=== PATIENT | male | born 1945 | race Caucasian/White ===

== ENCOUNTER 2016-09-16 17:21 | Inpatient (IN) | payer MEDICARE, OTHER ==
[2016-09-16 18:55] LABS: ABSOLUTE NEUTROPHIL COUNT 8.9 K/mm3 (1.8-7.7); BASO # 0.1 K/mm3 (0.0-0.2); BASO % 0.9 % (0.2-1.0); EOS # 0.3 (0.0-0.5); EOS % 2.2 % (0.9-2.9); HEMOGLOBIN 13.5 gm/l (14.0-18.0); IMM NEUT% 0.2 % (0-1); LYMPH # 2.3 (1.0-4.8); LYMPH % 17.8 % (15-45); MEAN CELL VOLUME 85.1 fl (80.0-94.0); MEAN CORPUSCULAR HEMOGLOBIN 28.7 pg (27.0-31.0); MEAN CORPUSCULAR HGB CONC 33.8 g/dl (33.0-37.0); MEAN PLATELET VOLUME 10.5 fl (7.4-10.4); MONO # 1.3 (0.0-0.8); MONO % 10.1 % (4-12); NEUT % 68.8 % (43-75); PLATELET COUNT 348 K/mm3 (130-400); RED CELL DISTRIBUTION WIDTH 12.6 % (11.5-14.5)
[2016-09-16] MEDS ORDERED: LACTATED RINGERS 1,000 ML ONE ×2 (18:57→20:58)
[2016-09-16 19:02] LABS: CALCIUM 10.4 mg/dL (8.6-10.3)
[2016-09-16 19:04] LABS: C-REACTIVE PROTEIN 5.3 mg/dl (<1.0)
--- NOTE | 2016-09-16 20:19 | RAD ---
FOOT - LEFT 2 VIEW HISTORY: Wounds involving the fifth metatarsal and second toe. COMPARISONS: None. FINDINGS: 2 views of the left foot were performed demonstrating diffuse bony osteopenia. The visualized osseous structures appear to remain intact. There is no soft tissue gas or gross cortical destruction visualized. Atherosclerotic vascular calcification is seen. There is accentuation of the plantar arch. IMPRESSION: 1. No gross cortical destruction or soft tissue gas observed. 2. Atherosclerotic vascular calcification. 3. Accentuation of the plantar arch.
--- NOTE | 2016-09-16 20:20 | RAD ---
FOOT - RIGHT 2 VIEW HISTORY: Second toe wound. COMPARISONS: None. FINDINGS: 2 views of the right foot were performed demonstrating diffuse bony osteopenia. The visualized osseous structures appear to remain intact with no gross cortical destruction or soft tissue gas is observed. There are hyperflexion deformities of the metatarsophalangeal joints with medial subluxation of the midfoot in relationship to the hindfoot. Atherosclerotic vascular calcification is present. IMPRESSION: 1. Bony osteopenia. 2. No gross cortical destruction or soft tissue gas identified. 3. Atherosclerotic vascular calcification.
[2016-09-16] MEDS ORDERED: VANCOMYCIN HCL 1.5 G in SODIUM CHLORIDE 0.9% 500 ML IV ONE (21:45)
[2016-09-16] MEDS ORDERED: PNEUMOCOCCAL 23-VAL P-SAC VAC 0.5 ML VIAL SUB-Q V ONE (22:57)
[2016-09-16 23:03] VITALS: BMI 26.5
[2016-09-16] MEDS ORDERED: SODIUM CHLORIDE 0.9% 100 ML IV PRN (23:12)
[2016-09-16] MEDS ORDERED: BISACODYL 10 MG SUP PR PRN (23:12)
[2016-09-16] MEDS ORDERED: CALCIUM CARBONATE 500 MG TAB.CHEW PO PRN (23:12)
[2016-09-16] MEDS ORDERED: BISACODYL 5 MG TABLET.EC PO PRN (23:12)
[2016-09-16] MEDS ORDERED: MAGNESIUM HYDROXIDE 30 ML UDCUP PO PRN (23:12)
[2016-09-16] MEDS ORDERED: BLISTEX LIPSTICK 1 EACH TP PRN (23:12)
[2016-09-16] MEDS ORDERED: MENTHOL/CETYLPYRD 1 EACH LOZENGE PO PRN (23:12)
[2016-09-16] MEDS ORDERED: SODIUM CHLORIDE 0.9% 1,000 ML IV SCH (23:15)
[2016-09-16] MEDS ORDERED: INSULIN ASPART (DOSE) 100 UNITS/1 ML SUB-Q PRN (23:16)
[2016-09-16] MEDS ORDERED: IBUPROFEN 600 MG TABLET PO PRN (23:22)
[2016-09-16] MEDS ORDERED: PROPRANOLOL HCL 40 MG TABLET PO PRN (23:22)
[2016-09-16] MEDS ORDERED: ACETAMINOPHEN 325 MG TABLET PO PRN (23:22)
[2016-09-16] MEDS ORDERED: DIPHENHYDRAMINE HCL 25 MG CAPSULE PO PRN (23:34)
[2016-09-16] MEDS: DIPHENHYDRAMINE HCL 25 MG CAPSULE PO PRN (23:47)
[2016-09-16] MEDS: ENOXAPARIN SODIUM 40 MG/0.4 ML SYRINGE SUB-Q SCH (23:47)
[2016-09-16] MEDS: ACETAMINOPHEN 500 MG TABLET PO PRN (23:48)
[2016-09-17] MEDS ORDERED: SODIUM CHLORIDE 0.9% IV SCH ×2 (01:00→10:30)
[2016-09-17] MEDS ORDERED: CEFAZOLIN SODIUM IV SCH ×4 (01:00→10:30)
[2016-09-17] MEDS ORDERED: CEFAZOLIN SODIUM 1,000 MG VIAL ONE (02:21)
[2016-09-17] MEDS ORDERED: SODIUM CHLORIDE 0.9% 50 ML IV ONE (02:21)
--- NOTE | 2016-09-17 06:49 | HP ---
Sylvain Godoy Aldo [id number] DATE OF ADMISSION: 09/16/2016 CHIEF COMPLAINT: Left knee redness and swelling and second left toe redness. HISTORY OF PRESENT ILLNESS: The patient is a 70-year-old male with a history of Charcot Roro tooth and poorly controlled diabetes who has had recurrent bursitis with previous admissions approximately a year ago who has had chronic difficulty with ambulation due to his weakness and diabetes. He reports his feet and toes are looking infected over the last two weeks. He has had some chills, but no fever. He notes that his knees and toes can hurt some if he is on them, but he is more concerned about how looked inflamed with a scab noted on them. He is considering getting diabetic shoes. Last saw Dr. Dalal in June. 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 He has a history of gastroesophageal reflux disease, history of Charcot Roro tooth, previous bursitis with enterococcus faecalis that was generally sensitive to most drugs tested last year. He has had essential tremor and takes propranolol for this as well and has a history of hypertension. PAST SURGICAL HISTORY: He has a history of a nephrolithotomy, but otherwise no surgeries. ALLERGIES: PENICILLIN HAS GIVEN HIM INCREASED HEART RATE ACCORDING TO HIS OLD PATIENT CHART AND LOSARTAN HAD BEEN ASSOCIATED WITH SOME SUICIDAL THOUGHTS. CURRENT MEDICATIONS: His home medications taken from his list in the computer and reviewed with him: 1. Acetaminophen 650 mg by mouth every 6 hours as needed. 2. Tylenol PM 1 by mouth at bedtime as needed. 3. Atenolol 50 mg daily. 4. Colecalciferol 50,000 units weekly. 5. Gabapentin 600 mg at bedtime. 6. Glipizide ER 5 mg daily. 7. Ibuprofen 600 mg by mouth at bedtime as needed. 8. Lantus 15 units subcutaneously at bedtime, this is reduced from the note the chart, he indicates that when he takes a higher dose it seems to make him urinate more. 9. Metformin 500 mg daily. 10. Ditropan 5 mg by mouth daily. 11. Propranolol 40 mg by mouth daily as needed for tremor. 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 He is disabled from Charcot Roro tooth. He was never . Has no kids. Nonsmoker. He does chew tobacco. Reports 1-1/2 bottles of beer a week. No particular [employer] affiliation. Hobbies include working on the property although, this would be at odds with his level of disability. He lives in a trailer in [place]. He reports he has been considering moving to [place] or to [place] possibly to live with somebody. FAMILY HISTORY: Father at 56 of a motor vehicle accident. Mom in 92. He has a paternal aunt who lives to 102. He has no children. REVIEW OF SYSTEMS: Eyes are okay. Ears are okay, but some wax. Nose is okay. Mouth is okay. Missing some teeth due to his high blood pressure medicine which makes his mouth dry. Neck is okay. Breathing is okay. He notes he get a little short of breath once in a while if he is laying on his left side. Heart: No particular complaints. Stomach is okay. No vomiting. Occasional loose stools and he did have a history of C-diff the previous hospitalization. No urinary complaints except for he was noting some red urine a couple of weeks ago attributed to a kidney stone. Urination has been okay otherwise. No stroke complaints. He would accept limited resuscitation in the event of a cardiac event. PHYSICAL EXAMINATION: GENERAL: Nontoxic, debilitated appearing male. VITAL SIGNS: Temperature 99.1, blood pressure 139/91, respirations 20, pulse 104, saturation 97% on room air. HEENT: Head is normocephalic, atraumatic. Eyes are grossly unremarkable. Ears are normal. Nose is unremarkable. Mouth: Dentition is only fair. NECK: Supple. No masses. No jugular venous distention. LUNGS: Generally clear to auscultation bilaterally. HEART: Regular rate and rhythm without murmur. ABDOMEN: Soft. Bowel sounds are normal. No rebound, no guarding. Nontender, nondistended. GENITOURINARY: Grossly normal male. EXTREMITIES: Legs with atrophy evident. Left knee with fullness of a prepatellar bursitis with some redness noted. It is warm, but not hot. A few small cracks in the skin noted, but no purulent discharge is evident. Left second toe has got a blister like collection over the proximal interphalangeal joint. His lateral left foot has got a unstageable eschar about 2 cm in long axis noted as well. His feet demonstrate changes from his neuropathy and his hands demonstrate atrophy. He has got an essential tremor evident. NEUROLOGIC: His orientation is good. Insight seems to be somewhat decreased. LABORATORY: White count 12.9, hemoglobin 13.5, platelets 348, MCV of 85.1, lactate 2.2, sodium 133, potassium 4.4, chloride 97, CO2 26, BUN 23, creatinine 1.1, glucose 420, calcium 10.4, CRP 5.3, sed rate 52. DIAGNOSTICS: Foot x-ray bone osteopenia, atherosclerotic vascular calcifications, but no gross destruction and no gas. ASSESSMENT AND PLAN: 1. Diabetic left second toe ulcer cellulitis. Plan Ancef and vancomycin due to previous enterococcus. 2. Left knee bursitis. Plan antibiotics as above. Blood cultures are obtained and will also check with orthopedics regarding these two lesions. 3. Sepsis due to cellulitis. Plan to continue IV fluids started in the emergency department. We will recheck lactate. 4. Uncontrolled diabetes mellitus. Plan Lantus sliding scale insulin and capillary blood glucoses along with intravenous fluids and check an A1c. 5. Charcot Roro tooth. Appreciate physical therapy and occupational therapy input although, he has been resistant to making any modifications to his living situation. 6. Social difficulties. Patient is resistant to previous placement attempts. 7. Hypertension. Will continue on atenolol. 8. Tremor. Patient is dual beta lianne therapy with atenolol and propranolol. will continue on both of these at this time. 9. Ambulatory difficulties and weakness. Appreciate physical therapy and occupational therapy. He reports considering getting diabetic shoes, so he may consider follow up with Dr. Dalal as an outpatient. 10. Full code status. 11. Venous thrombosis prophylaxis with Lovenox. 12. Reported hematuria. Will check urinalysis and consider whether CT scanning is desired while he is here. JOB: [id number] CC: Dr. Jennifer Smith
[2016-09-17 06:59] LABS: ABSOLUTE NEUTROPHIL COUNT 4.7 K/mm3 (1.8-7.7); BASO # 0.1 K/mm3 (0.0-0.2); EOS # 0.6 (0.0-0.5); HEMATOCRIT 30.9 % (32.0-52.0); HEMOGLOBIN 10.3 gm/l (14.0-18.0); IMM NEUT% 0.2 % (0-1); LYMPH # 3.3 (1.0-4.8); LYMPH % 33.1 % (15-45); MEAN CELL VOLUME 85.4 fl (80.0-94.0); MEAN CORPUSCULAR HEMOGLOBIN 28.5 pg (27.0-31.0); MEAN CORPUSCULAR HGB CONC 33.3 g/dl (33.0-37.0); MEAN PLATELET VOLUME 10.7 fl (7.4-10.4); MONO # 1.3 (0.0-0.8); MONO % 12.7 % (4-12); PLATELET COUNT 285 K/mm3 (130-400); RED CELL DISTRIBUTION WIDTH 12.6 % (11.5-14.5)
[2016-09-17 07:36] LABS: URINE APPEARANCE HAZY; URINE BILIRUBIN NEGATIVE (NEGATIVE); URINE BLOOD 4+ (NEGATIVE); URINE COLOR YELLOW; URINE GLUCOSE (UA) 3+ (NEGATIVE); URINE LEUKOCYTE ESTERASE 1+ (NEGATIVE); URINE NITRITE POSITIVE (NEGATIVE); URINE PROTEIN 1+ (NEGATIVE); URINE UROBILINOGEN NORMAL (0-1 mg/dl)
[2016-09-17 07:47] LABS: URINE BACTERIA 2+; URINE EPITHELIAL CELLS 0-1 /hpf; URINE WBC 30-40 /hpf
[2016-09-17 07:49] LABS: ALBUMIN 2.9 gm/dL (3.5-5.7); CALCIUM 8.1 mg/dL (8.6-10.3)
[2016-09-17] MEDS ORDERED: GLIPIZIDE 5 MG PO SCH (09:00)
--- NOTE | 2016-09-17 09:50 | CT ---
Exam Type: ABD/PELVIS W/O CON Date and Time: 09/17/2016 5:00 AM Clinical information: Hematuria. Comparison: None Procedure: Imaging device: [employer] Aquilion [address] scanner 1 mm axial images were obtained through the abdomen and pelvis. Stacked reconstructed 3, 4 and 5 mm images were photographed in the axial coronal and sagittal planes. No oral contrast was utilized for this examination. Exam: Without intravenous contrast. FINDINGS: Lung bases:The visualized lung bases appear to be appropriate with no mass, effusion or consolidation visualized. Liver: the liver is homogeneous with no discrete abnormality visualized. No definite findings of biliary dilatation are observed. Spleen: The spleen is homogeneous and does not appear to be enlarged. Gallbladder: Normal without enlargement or evidence of adjacent inflammatory changes. Pancreas: Normal without enlargement or evidence of adjacent inflammatory changes. Adrenal glands: Normal without enlargement or evidence of adjacent inflammatory changes. Abdominal aorta: Mild atherosclerotic vascular calcification is seen. No focal aneurysm is visualized. Kidneys: The kidneys appear to be of symmetric size with no significant perinephric inflammatory stranding observed. There is a large left sided calculus identified within the left renal collecting system measuring 12.7 x 9.5 mm in size. No significant associated obstruction is seen with the calyceal system not appearing distended. A subtle low-attenuation focus is suggested within the superior portion of the right kidney, likely reflecting a renal cyst. Bowel structures: Distal colonic diverticulosis is present without inflammatory stranding to suggest diverticulitis. No findings of obstruction are present. Appendix: The appendix is well-visualized and appears to be of normal caliber. No periappendiceal inflammatory changes or CT findings of appendicitis are currently observed. Bladder: The bladder is partially decompressed. There is mild suggested thickening of the bladder wall noted. Hernia: A small fat filled umbilical hernia is present. Adenopathy: A few scattered retroperitoneal lymph nodes are seen adjacent to the aorta measuring up to 11 mm in size. Bilateral inguinal lymph nodes are present as well measuring up to 2.5 cm within the left inguinal region and 3.1 cm within the right inguinal region. Osseous structures: Multilevel thoracic and lumbar degenerative changes are present. Pelvic structures: No discrete pelvic abnormalities are visualized in this examination. IMPRESSION: 1. A 12.7 x 9.5 mm calculus within the left renal collecting system without associated obstruction currently. 2. A probable right renal cyst. 3. Distal colonic diverticulosis without evidence to suggest diverticulitis. 4. Bilateral inguinal and mild retroperitoneal adenopathy. 5. Multilevel thoracic and lumbar degenerative changes. 6. Mild thickening of the bladder wall which may reflect an underlying component of cystitis. 7. A small fat filled umbilical hernia.
[2016-09-17] MEDS: VANCOMYCIN HCL 1.25 G in SODIUM CHLORIDE 0.9% 250 ML IV SCH ×2 (09:53→21:10)
[2016-09-17] MEDS: DOCUSATE SODIUM 100 MG CAPSULE PO SCH ×2 (09:54→21:10)
[2016-09-17] MEDS: INSULIN GLARGINE (DOSE) 100 UNITS/ML UNIT SUB-Q SCH ×2 (09:54→21:34)
[2016-09-17] MEDS: ATENOLOL 50 MG TABLET PO SCH (09:55)
[2016-09-17] MEDS: OXYBUTYNIN CHLORIDE 5 MG TAB.XL PO SCH (09:55)
[2016-09-17] MEDS ORDERED: BOT IV SCH (10:30)
[2016-09-17] MEDS ORDERED: NS 0.9% IV SCH (10:30)
[2016-09-17] MEDS ORDERED: GLIPIZIDE 5 MG PO ONE (11:08)
--- NOTE | 2016-09-17 11:09 | PDOC43 ---
- Subjective Chief Complaint: ulcers on both 2nd toes with redness of left 2nd toe. Subjective: Reports Pain Tolerable, Reports Tolerating Diet Well, Denies Fever - Objective Vital Signs Temperature 98.1 F 09/17/16 07:49 Pulse Rate 93 09/17/16 07:49 Respiratory Rate 16 09/17/16 07:49 Blood Pressure 140/80 09/17/16 07:49 O2 Saturation by Pulse Oximetry 97 09/17/16 07:49 Oxygen Delivery Method Room Air Oxygen Flow Rate 0 Intake and Output 09/16/16 09/17/16 09/18/16 06:59 06:59 06:59 Intake Total 800 Output Total 425 Balance 375 General: Alert, Oriented x3, Cooperative, No Acute Distress HEENT: Mucous membr. moist/pink Lungs: Clear to Auscultation Bilaterally Cardiovascular: Regular Rate and Rhythm Abdomen: Soft, Normal Bowel Sounds, Non-Distended, No Tenderness Extremities: Other (Charcot arthropathy of both feet, ulcerations on top of right 2nd PIP joint without redness, left 2nd toe with erythema and callus with underlying abscess over PIP joint each measuring about 1cm. Dry flat eschar on lateral aspect of left foot without erythema or ulceration measures 1cm. Prepatellar bursitis of left knee without evidence of infection), No Edema Laboratory 09/17/16 05:48 09/17/16 05:48 09/17/16 09/17/16 07:40 05:48 RBC 3.62 L POC Capillary Glucose 263 H Calcium 8.1 L AST 8 L Total Protein 5.9 L Albumin 2.9 L Current Medications: Current meds reviewed in EMR. - Problems: Assessment/Plan (1) Cellulitis and abscess of foot Status: Acute Assessment/Plan: involves left 2nd toe with ulcerating callus on ancef and Vancomycin, Cx obtained today and pending (2) UTI (urinary tract infection) Qualifiers: Urinary tract infection type: acute cystitis Hematuria presence: with hematuria Qualifier Code: (N30.01) Acute cystitis with hematuria Status : Acute Assessment/Plan: present on admit and suspected source of severe sepsis and lactic acidosis on admit. 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 Qualifier Code: (E11.42) Type 2 diabetes mellitus with diabetic polyneuropathy Status: Chronic Assessment/Plan: uncontrolled-increased Glucotrol and Lantus-will use high dose correction scale (4) Nqfthum-Trfje-Olzqg disease Status: Chronic Assessment/Plan: advanced, contributes to increased risk of infection (5) Hypertension Qualifiers: Hypertension type: essential hypertension Qualifier Code: (I10) Essential (primary) hypertension Status: Chronic Assessment/Plan: stable on meds (6) Bursitis, knee Qualifiers: Laterality: left Qualifier Code: (M70.52) Other bursitis of knee, left knee Status: Chronic Assessment/Plan: chronic due to overuse and pressure on knee from crawling in house, no evidence of infection (7) Hypokalemia Status: Resolved Assessment/Plan: will replace VTE Prophylaxis: ipcs Disposition: to be determined
[2016-09-17] MEDS: INSULIN ASPART (DOSE) 100 UNITS/1 ML SUB-Q PRN ×3 (11:38→21:33)
[2016-09-17] MEDS: CEFTRIAXONE 1 GRAM DUPLEX 1 G in Premix (D5W) 50 ml 1 EACH IV SCH (11:38)
[2016-09-17] MEDS ORDERED: SODIUM CHLORIDE NS ADD VANTAGE IV SCH (12:00)
[2016-09-17] MEDS ORDERED: VANCOMYCIN HCL IV SCH (12:00)
[2016-09-17 14:21] LABS: A1C-GLYCOHEMOGLOBIN 1.1 g/dl; HEMOGLOBIN-GLYCO 12.7 g/dl
[2016-09-17] MEDS: ENOXAPARIN SODIUM 40 MG/0.4 ML SYRINGE SUB-Q SCH (21:09)
[2016-09-17] MEDS: GABAPENTIN 300 MG CAPSULE PO SCH (21:09)
[2016-09-17] MEDS: DIPHENHYDRAMINE HCL 25 MG CAPSULE PO PRN (22:23)
[2016-09-17] MEDS: ACETAMINOPHEN 500 MG TABLET PO PRN (22:23)
[2016-09-18] MEDS: ATENOLOL 50 MG TABLET PO SCH (08:44)
[2016-09-18] MEDS: OXYBUTYNIN CHLORIDE 5 MG TAB.XL PO SCH (08:44)
[2016-09-18] MEDS: GLIPIZIDE 10 MG PO SCH (08:44)
[2016-09-18] MEDS: DOCUSATE SODIUM 100 MG CAPSULE PO SCH ×2 (08:44→21:13)
--- NOTE | 2016-09-18 08:58 | PDOC43 ---
- Subjective Chief Complaint: ulcers on both 2nd toes with redness of left 2nd toe. Subjective: Reports Pain Tolerable, Reports Tolerating Diet Well, Denies Fever - Objective Vital Signs Temperature 98.7 F 09/18/16 01:10 Pulse Rate 78 09/18/16 01:10 Respiratory Rate 18 09/18/16 04:24 Blood Pressure 132/68 09/18/16 01:10 O2 Saturation by Pulse Oximetry 98 09/18/16 01:10 Oxygen Delivery Method Room Air Oxygen Flow Rate 0 Intake and Output 09/17/16 09/18/16 09/19/16 06:59 06:59 06:59 Intake Total 800 2170 Output Total 425 1625 Balance 375 545 General: Alert, Oriented x3, Cooperative, No Acute Distress HEENT: Mucous membr. moist/pink Lungs: Clear to Auscultation Bilaterally Cardiovascular: Regular Rate and Rhythm Abdomen: Soft, Normal Bowel Sounds, Non-Distended, No Tenderness Extremities: Other (Charcot arthropathy of both feet with 1cm dry eschar on lat. aspect of left foot(approx 1cm.) ulcerated callus approx. 1cm on top of both 2nd PIP joints with cellulitic area around the PIP but not extending to foot. Bursal swelling in left prepatellar bursa with mild erythema but nontender , and not hot), No Edema Laboratory 09/17/16 05:48 09/17/16 05:48 09/17/16 09/17/16 09/17/16 21:08 17:17 11:10 POC Capillary Glucose 245 H 210 H 174 H Calcium AST Total Protein Albumin 09/17/16 09/17/16 07:40 05:48 POC Capillary Glucose 263 H Calcium 8.1 L AST 8 L Total Protein 5.9 L Albumin 2.9 L Current Medications: Current meds reviewed in EMR. - Problems: Assessment/Plan (1) Cellulitis and abscess of foot Status: Acute Assessment/Plan: involves left 2nd toe with ulcerating callus on ancef and Vancomycin, Cx still pending (2) UTI (urinary tract infection) Qualifiers: Urinary tract infection type: acute cystitis Hematuria presence: with hematuria Qualifier Code: (N30.01) Acute cystitis with hematuria Status : Acute Assessment/Plan: present on admit and suspected source of severe sepsis and lactic acidosis on admit. Complicated by large nonobstructing left kidney stone-await Cx results, switched to Rocephin plus vancomycin (3) Diabetes mellitus type II, uncontrolled Qualifiers: Diabetes mellitus complication status: with neurologic complications Diabetes mellitus complication detail: with polyneuropathy Diabetes mellitus detention insulin use: with detention use Qualifier Code: (E11.42) Type 2 diabetes mellitus with diabetic polyneuropathy Status: Chronic Assessment/Plan: uncontrolled, HGBA1C was 10.4-increased Glucotrol and Lantus, using high dose correction scale-down to 76 this am, will change Lantus to 30 units at bedtime instead of 20units twice daily (4) Tgvjtvk-Ojijn-Intyn disease Status: Chronic Assessment/Plan: advanced, contributes to increased risk of infection (5) Hypertension Qualifiers: Hypertension type: essential hypertension Qualifier Code: (I10) Essential (primary) hypertension Status: Chronic Assessment/Plan: stable on meds (6) Bursitis, knee Qualifiers: Laterality: left Qualifier Code: (M70.52) Other bursitis of knee, left knee Status: Chronic Assessment/Plan: chronic due to overuse and pressure on knee from crawling in house, no evidence of infection (7) Hypokalemia Status: Resolved Assessment/Plan: will replace-recheck in am VTE Prophylaxis: ipcs Disposition: Anticipate SNF placement in am
[2016-09-18] MEDS: VANCOMYCIN HCL 1.25 G in SODIUM CHLORIDE 0.9% 250 ML IV SCH (09:32)
[2016-09-18] MEDS ORDERED: VANCOMYCIN HCL 500 MG in NS 0.9% (MINI-BAG PLUS) 100 ML IV ONE (11:45)
[2016-09-18] MEDS: INSULIN ASPART (DOSE) 100 UNITS/1 ML SUB-Q PRN ×3 (12:04→21:21)
[2016-09-18] MEDS: CEFTRIAXONE 1 GRAM DUPLEX 1 G in Premix (D5W) 50 ml 1 EACH IV SCH (12:59)
[2016-09-18] MEDS ORDERED: PUMP TUBING ONE (14:34)
[2016-09-18] MEDS: ACETAMINOPHEN 325 MG TABLET PO PRN ×2 (16:03→21:21)
[2016-09-18] MEDS ORDERED: INSULIN GLARGINE (DOSE) 100 UNITS/ML UNIT SUB-Q SCH (21:00)
[2016-09-18] MEDS: ENOXAPARIN SODIUM 40 MG/0.4 ML SYRINGE SUB-Q SCH (21:09)
[2016-09-18] MEDS: GABAPENTIN 300 MG CAPSULE PO SCH (21:09)
[2016-09-18] MEDS: VANCOMYCIN HCL 1.5 G in SODIUM CHLORIDE 0.9% 500 ML IV SCH (21:30)
[2016-09-18] MEDS: DIPHENHYDRAMINE HCL 25 MG CAPSULE PO PRN (23:46)
[2016-09-19 06:26] LABS: ABSOLUTE NEUTROPHIL COUNT 4.5 K/mm3 (1.8-7.7); BASO # 0.1 K/mm3 (0.0-0.2); BASO % 0.8 % (0.2-1.0); EOS # 0.8 (0.0-0.5); EOS % 8.5 % (0.9-2.9); HEMATOCRIT 34.4 % (32.0-52.0); HEMOGLOBIN 11.4 gm/l (14.0-18.0); IMM NEUT # 0.1 K/mm3 (0-0.2); IMM NEUT% 0.5 % (0-1); LYMPH # 2.9 (1.0-4.8); LYMPH % 30.1 % (15-45); MEAN CORPUSCULAR HEMOGLOBIN 28.5 pg (27.0-31.0); MEAN CORPUSCULAR HGB CONC 33.1 g/dl (33.0-37.0); MEAN PLATELET VOLUME 10.8 fl (7.4-10.4); MONO # 1.3 (0.0-0.8); MONO % 13.8 % (4-12); NEUT % 46.3 % (43-75); PLATELET COUNT 266 K/mm3 (130-400); RED CELL DISTRIBUTION WIDTH 13.1 % (11.5-14.5)
[2016-09-19 06:41] LABS: CALCIUM 8.7 mg/dL (8.6-10.3)
[2016-09-19 08:13] VITALS: BP 159/91
[2016-09-19] MEDS: ATENOLOL 50 MG TABLET PO SCH (08:22)
[2016-09-19] MEDS: DOCUSATE SODIUM 100 MG CAPSULE PO SCH (08:22)
[2016-09-19] MEDS: GLIPIZIDE 10 MG PO SCH (08:22)
[2016-09-19] MEDS: OXYBUTYNIN CHLORIDE 5 MG TAB.XL PO SCH (08:26)
[2016-09-19] MEDS: VANCOMYCIN HCL 1.5 G in SODIUM CHLORIDE 0.9% 500 ML IV SCH (08:28)
[2016-09-19] MEDS: CEFTRIAXONE 1 GRAM DUPLEX 1 G in Premix (D5W) 50 ml 1 EACH IV SCH (11:09)
[2016-09-19] MEDS: INSULIN ASPART (DOSE) 100 UNITS/1 ML SUB-Q PRN (12:17)
--- NOTE | 2016-09-19 18:11 | DS ---
BENNY FLORES [id number] DATE OF ADMISSION: 09/16/2016 DATE OF DISCHARGE: 09/19/2016 DISCHARGE DIAGNOSES: 1. Cellulitis involving the left 2nd toe, along with a urinary tract infection, causing severe sepsis, with a lactic acidosis on admission. The patient also had an abscess on his left 2nd toe caused by Staph aureus which was methicillin-sensitive. 2. Prepatellar bursitis, noninfectious, due to overuse. 3. He has a large left-sided renal calculus, measuring 12.7 x 9.5 mm. OTHER DIAGNOSES: 1. Uncontrolled diabetes. 2. Glpljqx-Awtty-Iucdb disease, with peripheral neuropathy. 3. Chronic essential hypertension. 4. Gastroesophageal reflux disease. 5. A component of diabetic neuropathy is also felt to be present. TO SUMMARIZE THE ADMISSION AND HOSPITAL COURSE: The patient is a 70-year-old male with medical problems as listed above who presented with concerns about infection on his left foot and weakness. Workup in the emergency department showed a heart rate of 104 and a temperature of 99.1. White blood cell count was elevated at 12.9. Lactate was elevated at 2.2. Creatinine was 1.1 and glucose was elevated at 420. Urinalysis showed 30-40 white blood cells, positive nitrite and 2+ bacteria. He had a CT scan of his abdomen and pelvis on admission, showing a large renal calculus in the left kidney as mentioned above. No other acute findings were found, except for some bilateral inguinal and mild retroperitoneal adenopathy. He was noted to have redness involving the left 2nd toe, with vesicle and callus present over the top of the toe at the PIP joint. He also had a callus and ulceration on the right PIP joint, but that had no signs of secondary infection. He had some prepatellar bursal swelling on the left lower leg, without evidence of infection. In that area he also had a dried eschar on the lateral aspect of the left foot, measuring about 1 x 1 cm. He was admitted to the Hospitalist Service and was treated with Ancef and vancomycin initially, and his antibiotics were switched to Rocephin and vancomycin to have broader coverage pending the cultures. His left toe abscess with cellulitis was cultured and drained and grew methicillin-sensitive Staph aureus. At the time of this dictation his urine culture is still pending, but is growing gram-negative rods. The patient's white blood cell count improved to 9.7 with treatment, and he remained afebrile. He exhibited weakness, with a decline from his prior level of functioning, and a senior living stay was recommended. He was accepted at [facility] for PT and OT services, and discharge on 09/19/2016, with vital signs showing a temperature of 98.6, pulse 90, blood pressure 159/91, respirations 17, and oxygen saturations are 97% on room air. His body mass index is 26.6 and weight is 81.6 kilograms. PHYSICAL EXAMINATION: GENERAL: This is a well-developed and well-nourished male in no acute distress. HEENT: Unremarkable. LUNGS: Clear to auscultation bilaterally. CARDIOVASCULAR: Reveals a regular rate and rhythm, without a murmur. ABDOMEN: Soft, nontender and nondistended, with positive bowel sounds. EXTREMITIES: Showed no peripheral edema. The area of cellulitis on the left 2nd toe is improved. The vesicle that was unroofed is clean and dry, with a small amount of serous drainage. He has a dry ulceration measuring 1 x 1 cm on the top of the right PIP joint, which is covered with a Band-Aid, and a dry eschar on the lateral aspect of the left foot, measuring 1 x 1 cm, which is left uncovered. He has some prepatellar bursa swelling on the left knee, but no evidence of infection in this area. He has high-arched feet and deformities consistent with Avniwcr-Exgze-Peukk disease. LABS: His laboratory studies on discharge showed a white count of 9.7, hemoglobin 11.4 and platelet count of 266,000. Chemistry profile showed a sodium of 134 and potassium 3.5. Carbon dioxide is 24. BUN is 18 and creatinine is 0.9. Glucose is 258. Culture of the urine is growing gram-negative rods, but final ID is pending. Culture of the left 2nd toe is growing methicillin-sensitive Staph aureus. DISPOSITION: As above, is to [facility] where he will get PT and OT services to evaluate and treat. He will get skin care, bowel care and podiatry care per house protocol. DISCHARGE DIET: He will be on a diabetic diet. DISCHARGE MEDICATIONS: 1. He will be discharged on an increased dose of Lantus 30 units sub-Q at bedtime. 2. I prescribed Bactrim DS twice daily for fourteen days. 3. Gabapentin 600 mg at bedtime. 4. Metformin was increased to 500 mg twice daily with meals. He is prescribed: 1. Ditropan XL 5 mg daily. 2. Vitamin D-3, 50,000 units once a week. 3. Tylenol 650 mg every six hours as needed. 4. Atenolol 50 mg daily. 5. Glipizide ER was increased to 10 mg daily. He will continue with: 1. Tylenol P.M. at bedtime as needed for sleep. 2. Propranolol 40 mg daily as needed for tremor. 3. Ibuprofen 600 mg at bedtime as needed for pain. DISCHARGE PLAN: Follow-up has been arranged with Dr. Bonifacio Medina for his large kidney stone, and they will contact him to schedule. He has a follow-up with Dr. Nimesh Rodriguez on 09/30/2016 at 3:00 P.M. [facility] is still in the process of getting updated braces for his Qvvehdo-Kdrfc-Kjmah disease. ALLERGIES: Penicillin. CODE STATUS: Full code. cc: Dr. Bonifacio Rodriguez
== END 2016-09-19 13:44 | DRG 872 ==
LOC: ED 17:21 → MS 21:10
PROVIDERS: ADMIT Family Medicine; ATTEND Family Medicine
DX: A41.81 Sepsis due to Enterococcus (principal); N39.0 Urinary tract infection, site not specified; L02.612 Cutaneous abscess of left foot; E11.621 Type 2 diabetes mellitus with foot ulcer; L97.529 Non-pressure chronic ulcer of other part of left foot with unspecified severity; M70.52 Other bursitis of knee, left knee; G60.0 Hereditary motor and sensory neuropathy; I10 Essential (primary) hypertension; R25.1 Tremor, unspecified; M70.42 Prepatellar bursitis, left knee; N20.0 Calculus of kidney; A49.01 Methicillin susceptible Staphylococcus aureus infection, unspecified site; E11.42 Type 2 diabetes mellitus with diabetic polyneuropathy; E87.6 Hypokalemia; R65.20 Severe sepsis without septic shock; K21.9 Gastro-esophageal reflux disease without esophagitis

== ENCOUNTER 2016-10-14 10:39 | Inpatient (IN) | payer MEDICARE, OTHER ==
[2016-10-14] MEDS ORDERED: SODIUM CHLORIDE 0.9% 1,000 ML ONE (11:44)
[2016-10-14 12:04] LABS: BASO # 0.1 K/mm3 (0.0-0.2); BASO % 0.6 % (0.2-1.0); EOS # 0.1 (0.0-0.5); EOS % 0.7 % (0.9-2.9); HEMATOCRIT 41.9 % (32.0-52.0); HEMOGLOBIN 13.9 gm/l (14.0-18.0); IMM NEUT # 0.1 K/mm3 (0-0.2); IMM NEUT% 0.4 % (0-1); LYMPH # 1.6 (1.0-4.8); LYMPH % 9.4 % (15-45); MEAN CELL VOLUME 85.5 fl (80.0-94.0); MEAN CORPUSCULAR HEMOGLOBIN 28.4 pg (27.0-31.0); MEAN CORPUSCULAR HGB CONC 33.2 g/dl (33.0-37.0); MEAN PLATELET VOLUME 10.6 fl (7.4-10.4); MONO # 1.9 (0.0-0.8); MONO % 11.2 % (4-12); NEUT % 77.7 % (43-75); PLATELET COUNT 258 K/mm3 (130-400); RED CELL DISTRIBUTION WIDTH 13.2 % (11.5-14.5)
[2016-10-14 12:11] LABS: ALB/GLOB RATIO 0.9 (>1.0); CALCIUM 10.2 mg/dL (8.6-10.3)
[2016-10-14] MEDS ORDERED: ACETAMINOPHEN 500 MG TABLET ONE (12:53)
[2016-10-14 15:12] LABS: SPECIFIC GRAVITY 1.025 (1.001-1.030); URINE BILIRUBIN NEGATIVE (NEGATIVE); URINE BLOOD 4+ (NEGATIVE); URINE GLUCOSE (UA) 3+ (NEGATIVE); URINE LEUKOCYTE ESTERASE TRACE (NEGATIVE); URINE NITRITE NEGATIVE (NEGATIVE); URINE PROTEIN 3+ (NEGATIVE); URINE UROBILINOGEN NORMAL (0-1 mg/dl)
[2016-10-14 15:13] LABS: URINE APPEARANCE HAZY; URINE COLOR AMBER
[2016-10-14 15:14] LABS: URINE WBC 15-20 /hpf
[2016-10-14 15:15] LABS: URINE BACTERIA 1+
[2016-10-14] MEDS ORDERED: CEFTRIAXONE 1 GRAM DUPLEX 50 ML IV ONE (15:32)
[2016-10-14] MEDS ORDERED: MENTHOL/CETYLPYRD 1 EACH LOZENGE PO PRN (17:38)
[2016-10-14] MEDS ORDERED: BISACODYL 10 MG SUP PR PRN (17:38)
[2016-10-14] MEDS ORDERED: BLISTEX LIPSTICK 1 EACH TP PRN (17:38)
[2016-10-14] MEDS ORDERED: SODIUM CHLORIDE 0.9% 100 ML IV PRN (17:38)
[2016-10-14] MEDS ORDERED: BISACODYL 5 MG TABLET.EC PO PRN (17:38)
[2016-10-14] MEDS ORDERED: MAGNESIUM HYDROXIDE 30 ML UDCUP PO PRN (17:38)
[2016-10-14] MEDS ORDERED: LACTATED RINGERS 1,000 ML IV SCH (17:44)
[2016-10-14 17:56] VITALS: BMI 26.5
[2016-10-14] MEDS ORDERED: PUMP TUBING ONE (18:08)
[2016-10-14] MEDS: ENOXAPARIN SODIUM 40 MG/0.4 ML SYRINGE SUB-Q SCH (18:15)
[2016-10-14] MEDS: INSULIN ASPART (DOSE) 100 UNITS/1 ML SUB-Q PRN (18:31)
[2016-10-14] MEDS: CEFTAZIDIME IV SCH (19:15)
[2016-10-14] MEDS: NS 0.9% IV SCH (19:15)
[2016-10-14] MEDS: ACETAMINOPHEN 325 MG TABLET PO PRN (20:18)
[2016-10-14] MEDS ORDERED: ACETAMINOPHEN 500 MG TABLET PO PRN (20:29)
[2016-10-14] MEDS: GABAPENTIN 300 MG CAPSULE PO SCH (21:16)
[2016-10-14] MEDS: DOCUSATE SODIUM 100 MG CAPSULE PO SCH (21:16)
[2016-10-14] MEDS: CLOTRIMAZOLE TP SCH (21:17)
[2016-10-14] MEDS: BETAMETHASONE DIPROPIONATE TP SCH (21:17)
[2016-10-14] MEDS: INSULIN GLARGINE (DOSE) 100 UNITS/ML UNIT SUB-Q SCH (21:17)
[2016-10-15] MEDS ORDERED: ACETAMINOPHEN 500 MG TABLET PO PRN (00:15)
[2016-10-15] MEDS: CEFTAZIDIME IV SCH ×3 (03:27→19:11)
[2016-10-15] MEDS: NS 0.9% IV SCH ×3 (03:27→19:11)
[2016-10-15 05:36] LABS: ABSOLUTE NEUTROPHIL COUNT 8.9 K/mm3 (1.8-7.7); BASO # 0.1 K/mm3 (0.0-0.2); BASO % 0.6 % (0.2-1.0); EOS # 0.6 (0.0-0.5); EOS % 4.3 % (0.9-2.9); HEMOGLOBIN 10.9 gm/l (14.0-18.0); IMM NEUT # 0.1 K/mm3 (0-0.2); IMM NEUT% 0.4 % (0-1); MEAN CELL VOLUME 86.2 fl (80.0-94.0); MEAN CORPUSCULAR HEMOGLOBIN 28.5 pg (27.0-31.0); MEAN PLATELET VOLUME 10.5 fl (7.4-10.4); MONO # 1.9 (0.0-0.8); MONO % 14.1 % (4-12); NEUT % 65.6 % (43-75); PLATELET COUNT 204 K/mm3 (130-400); RED CELL DISTRIBUTION WIDTH 13.4 % (11.5-14.5)
[2016-10-15 05:55] LABS: CALCIUM 8.5 mg/dL (8.6-10.3)
--- NOTE | 2016-10-15 07:35 | HP ---
Sylvain Carlson [id number] DATE OF ADMISSION: 10/14/2016 CHIEF COMPLAINT: Weakness. 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 His symptoms came on today. He has had some associated lower abdominal discomfort and urinary frequency. He has had chronic ulceration on the lateral aspect of the left foot and over the distal interphalangeal joint of the left second toe. He also has chronic prepatellar bursitis. He was recently hospitalized in September for cellulitis involving the left foot as well as a urinary tract infection caused by pseudomonas aeruginosa. He had a culture of his left second toe performed during his last visit showing methicillin sensitive Staph aureus. He was treated with Bactrim and discharged to [facility] where he completed a course of physical therapy and was discharged around the end of March. He reports that he was doing well. He saw his primary care provider on September 30. He started to feel worse this week and today developed the severe weakness as noted above. Workup in the emergency department showed evidence of a urinary tract infection. He also had evidence of uncontrolled diabetes and possible cellulitis over the left foot. He also has chronic prepatellar bursitis due to friction and overuse. REVIEW OF SYSTEMS: Significant for the generalized weakness, but is negative for any reports of fevers or chills. He denies any recent upper respiratory symptoms, cough, dyspnea, wheezing, chest pain, shortness of breath, or palpations. He denies complaints of nausea, vomiting, diarrhea, or constipation. He denies any headaches, fainting, blackouts, or seizures. He has had some urinary frequency which has worsened recently. 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 He also has adult onset diabetes on insulin also complicated by neuropathy. He has had chronic ulcerations on his left foot associated with the neuropathy. He has had recurrent urinary tract infections associated with left sided nephrolithiasis. Recently he has been elevated by Dr. Medina and laser lithotripsy is planned in mid November. He has a history of chronic essential hypertension, also gastroesophageal reflux disease. He also has a history of a benign essential tremor. PAST SURGICAL HISTORY: Significant for kidney stone surgery in the past. ALLERGIES: TO PENICILLIN DOCUMENTED. HE REPORTS IT HAS CAUSED INCREASED HEART RATE. HOME MEDICATIONS: Consistent of: 1. Propranolol 40 mg by mouth daily as needed for tremor. 2. Ditropan XL 5 mg daily. 3. Metformin 500 mg twice a day with meals. 4. Lantus insulin 30 units subcutaneous at bedtime. 5. Ibuprofen 600 mg at bedtime as needed for pain. 6. Glipizide extended release 10 mg daily. 7. Neurontin 600 mg at bedtime. 8. Vitamin D3 50,000 units every week. 9. Atenolol 50 mg daily. 10. Tylenol PM 1 tablet at bedtime as needed for sleep. 11. Extra Strength Tylenol 650 mg every 6 hours as needed for pain. FAMIL HISTORY: Significant for a father and a grandfather who probably had Charcot Roro Tooth disease. His father at the age of 56 in a motor vehicle accident. His mother lived to the age of 92. 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 He used to work in the [employer] industry. He has been disabled due to his Charcot Roro Tooth disease. He is single. He has never been and has no children. He is a nonsmoker, but does occasionally chew tobacco. He drinks alcohol approximately 1 to 2 beers per week. He has no particular synagogue affiliation. He lives in a trailer and property in [facility] [place]. Historically he has been reluctant to pursue assisted living as he does not want to sell his property. His primary care provider is Dr. Nimesh Rodriguez. PHYSICAL EXAMINATION: VITAL SIGNS: Show a body mass index of 26.5, weight of 79.1 kg. Temperature is 98.4, pulse 90, blood pressure 117/64, respiration 18, oxygen saturation is 98% on room air. GENERAL: This is a well-developed, well-nourished elderly male in no acute distress. HEENT: Shows poor dentition, moist pink oral mucosa, no lesions. NECK: Full range of motion without tenderness. LUNGS: Clear to auscultation bilaterally. CARDIOVASCULAR: Regular rate and rhythm without a murmur. ABDOMEN: Soft, nontender, nondistended with positive bowel sounds. No flank tenderness. GENITOURINARY: Shows a papulosquamous rash in the scrotal region. No ulceration. EXTREMITIES: Lower extremity show atrophy of the calf muscles in both legs. He has pes cavus deformity of the feet. He has distal muscle weakness and sensory loss. He has an eschar on the lateral aspect of the left foot measuring approximately 2 cm in size without any secondary inflammation. He has a 1 cm ulceration over the distal interphalangeal joint of the left second toe. There is some redness involving the toe and extending up to the top of the left foot. He has marked left prepatellar bursal swelling, mild bursal on the right. Abrasions over both knees, mildly increased warmth, but no significant redness is seen. NEUROLOGIC: Consistent with Charcot Roro Tooth disease. He is alert and oriented x3. LABORATORY STUDIES: Showed an elevated white blood cell count at 16.7, hemoglobin is 13.9, platelet count is 258,000, normal differential. Chemistry profile shows sodium of 135, potassium mildly increased at 5.2, carbon dioxide normal at 26. BUN 22, creatinine 1.1, glucose elevated at 345. Liver function tests are normal. Albumin is normal at 4.0. Globulin is elevated at 4.3. His urinalysis showed a specific gravity of 1.025, 3+ protein, 3+ glucose, ketones negative, 4+ blood, 5-10 red cells per high power field with 15 to 20 white cells per high power field and 1+ bacteria. Alcohol level was negative. No diagnostic imaging tests were performed. ASSESSMENT: The patient has some cellulitis involving the left foot and evidence of a bacterial urinary tract infection with a history of a recent Methicillin Staph aureus infection of his left foot and pseudomonas aeruginosa infection in his urine which was drug resistant to multiple agents. He has generalized weakness likely due to the above. He has uncontrolled diabetes suspect poor compliance or possibly exacerbation of his glucose due to infection. He has chronic left sided nephrolithiasis possible contributing to recurrent urinary tract infections followed by Dr. Medina. He has chronic bilateral prepatellar bursitis due to overuse and friction. He has Charcot Roro Tooth disease fairly advanced limiting his mobility. He is admitted to the med/surg unit. I am going to treat him with Fortaz to cover for drug resistant urinary organisms and for his cellulitis. Will get physical therapy and occupational therapy service to evaluate and treat the patient. Anticipate correction placement back to [facility] in the next 48 to 72 hours. We will get him back on his insulin and diabetic regimen, but I am going to hold his metformin while he is in the hospital. Will order wound care for his left foot and his knees, as well as his left second toe. Venous thromboembolism risk is moderate and prophylaxis is prescribed in the form of Lovenox. For his hyperkalemia we will follow that. Anticipate his potassium will normalize with treatment of his blood sugars and IV hydration. Further treatment and recommendations will depend on his hospital course. JOB: [id number] CC: Dr. Nimesh Medina
[2016-10-15] MEDS: CLOTRIMAZOLE TP SCH ×2 (08:35→21:48)
[2016-10-15] MEDS: BETAMETHASONE DIPROPIONATE TP SCH ×2 (08:35→21:48)
[2016-10-15] MEDS: INSULIN ASPART (DOSE) 100 UNITS/1 ML SUB-Q PRN ×2 (08:35→11:21)
[2016-10-15] MEDS: ATENOLOL 50 MG TABLET PO SCH (08:36)
[2016-10-15] MEDS: DOCUSATE SODIUM 100 MG CAPSULE PO SCH ×2 (08:36→20:28)
[2016-10-15] MEDS: GLIPIZIDE 5 MG PO SCH (08:37)
[2016-10-15] MEDS: OXYBUTYNIN CHLORIDE 5 MG TAB.XL PO SCH (08:38)
[2016-10-15] MEDS: ACETAMINOPHEN 325 MG TABLET PO PRN (13:48)
--- NOTE | 2016-10-15 15:35 | PDOC43 ---
- Subjective Chief Complaint: Weakness Subjective: Reports Tolerating Diet Well, Denies Shortness of Breath, Denies Cough, Denies Chest Pain, Denies Abdominal Pain, Denies Nausea, Denies Vomiting , Denies Fever, Denies Chills - Objective Vital Signs Temperature 97.8 F 10/15/16 07:48 Pulse Rate 88 10/15/16 07:48 Respiratory Rate 20 10/15/16 07:48 Blood Pressure 114/70 10/15/16 07:48 O2 Saturation by Pulse Oximetry 97 10/15/16 07:48 Oxygen Delivery Method Room Air Oxygen Flow Rate 0 Intake and Output 10/14/16 10/15/16 10/16/16 06:59 06:59 06:59 Intake Total 800 Output Total 625 Balance 175 General: Alert, Oriented x3, Cooperative, No Acute Distress HEENT: Atraumatic Lungs: Clear to Auscultation Bilaterally Cardiovascular: Regular Rate and Rhythm Abdomen: Soft, Normal Bowel Sounds, Non-Distended, No Tenderness Extremities: Normal Pulses, Other (No redness/warmth. L foot/toe dressings C/D/ I. CMT changes noted B.), No Edema Laboratory 10/15/16 05:15 10/15/16 05:15 Current Medications: Current meds reviewed in EMR. - Problems: Assessment/Plan (1) UTI (urinary tract infection) Qualifiers: Urinary tract infection type: acute cystitis Qualifier Code: () Status: AcuteAssessment/Plan: Recurrent UTI associated with renal stone. Con't Fortaz given h/o pseudomonas and await final cx results. May need prophylactic abx. Attempt to move up appt with urology for lithotripsy. (2) Cellulitis and abscess of foot Status: AcuteAssessment/Plan: No evidence of cellulitis today- resolved. (3) Iyydwxb-Taqta-Mkcrb disease Status: ChronicAssessment/Plan: Advanced. Supportive care. (4) Diabetes mellitus type II, uncontrolled Qualifiers: Diabetes mellitus complication status: with neurologic complications Diabetes mellitus complication detail: with polyneuropathy Diabetes mellitus long term care pharmacist insulin use: with long term care pharmacist use Qualifier Code: (E11.42) Type 2 diabetes mellitus with diabetic polyneuropathy Status: Chronic Assessment/Plan: Stable. Long standing poor control/compliance. Con't current tx. VTE Prophylaxis: Lovenox. Disposition: Anticipate d/c to SNF in 1-2 days.
[2016-10-15] MEDS: ENOXAPARIN SODIUM 40 MG/0.4 ML SYRINGE SUB-Q SCH (17:43)
[2016-10-15] MEDS: GABAPENTIN 300 MG CAPSULE PO SCH (20:28)
[2016-10-15] MEDS: IBUPROFEN 600 MG TABLET PO PRN (20:28)
[2016-10-15] MEDS: INSULIN GLARGINE (DOSE) 100 UNITS/ML UNIT SUB-Q SCH (20:58)
[2016-10-16] MEDS: DIPHENHYDRAMINE HCL 25 MG CAPSULE PO PRN ×2 (00:17→22:04)
[2016-10-16] MEDS: CEFTAZIDIME IV SCH ×3 (03:06→19:39)
[2016-10-16] MEDS: NS 0.9% IV SCH ×3 (03:06→19:39)
[2016-10-16 05:45] LABS: HEMATOCRIT 33.5 % (32.0-52.0); HEMOGLOBIN 11.2 gm/l (14.0-18.0); MEAN CELL VOLUME 85.9 fl (80.0-94.0); MEAN CORPUSCULAR HEMOGLOBIN 28.7 pg (27.0-31.0); MEAN CORPUSCULAR HGB CONC 33.4 g/dl (33.0-37.0); RED CELL DISTRIBUTION WIDTH 13.5 % (11.5-14.5)
[2016-10-16 06:17] LABS: ALB/GLOB RATIO 0.9 (>1.0); ALBUMIN 3.1 gm/dL (3.5-5.7); CALCIUM 8.5 mg/dL (8.6-10.3)
[2016-10-16] MEDS: CLOTRIMAZOLE TP SCH ×2 (08:45→21:06)
[2016-10-16] MEDS: BETAMETHASONE DIPROPIONATE TP SCH ×2 (08:45→21:06)
[2016-10-16] MEDS: ATENOLOL 50 MG TABLET PO SCH (08:46)
[2016-10-16] MEDS: DOCUSATE SODIUM 100 MG CAPSULE PO SCH ×2 (08:46→20:56)
[2016-10-16] MEDS: GLIPIZIDE 5 MG PO SCH (08:46)
[2016-10-16] MEDS: OXYBUTYNIN CHLORIDE 5 MG TAB.XL PO SCH (08:46)
[2016-10-16] MEDS: ACETAMINOPHEN 325 MG TABLET PO PRN ×3 (08:53→23:18)
[2016-10-16] MEDS ORDERED: PUMP TUBING ONE ×2 (11:34→11:39)
--- NOTE | 2016-10-16 12:49 | PDOC43 ---
- Subjective Chief Complaint: Weakness Subjective: Reports Adequate Oral Intake, Denies Fever - Objective Vital Signs Temperature 98.0 F 10/16/16 07:05 Pulse Rate 67 10/16/16 07:05 Respiratory Rate 17 10/16/16 07:05 Blood Pressure 133/79 10/16/16 07:05 O2 Saturation by Pulse Oximetry 100 10/16/16 07:05 Oxygen Delivery Method Room Air Oxygen Flow Rate 0 Intake and Output 10/15/16 10/16/16 10/17/16 06:59 06:59 06:59 Intake Total 800 2060 Output Total 625 1250 500 Balance 175 810 -500 General: Alert, Oriented x3, Cooperative, No Acute Distress HEENT: Mucous membr. moist/pink Lungs: Clear to Auscultation Bilaterally Cardiovascular: Regular Rate and Rhythm Abdomen: Soft, Normal Bowel Sounds, Non-Distended, No Tenderness Extremities: No Edema Skin: Other (1cm ulceration over top of left second toe at DIP joint assoc. with inflamation and some purulent discharg and erythema over dorsum of foot, also small scab on right DIP without inflamation. Dry eschar over left lateral foot without inflammation. Left prepatellar bursal swelling with to 1cm ulcers but no erythema. superficial scab over right knee with mild prepatellar bursal swelling. Deformities of both feet consistent with Charcot Roro Tooth disease) Laboratory 10/16/16 05:15 10/16/16 05:15 10/16/16 10/16/16 10/15/16 11:51 05:15 20:50 RBC 3.90 L POC Capillary Glucose 126 H 160 H Calcium 8.5 L Albumin 3.1 L Albumin/Globulin Ratio 0.9 L 10/15/16 17:16 RBC POC Capillary Glucose 67 L Calcium Albumin Albumin/Globulin Ratio Current Medications: Current meds reviewed in EMR. - Problems: Assessment/Plan (1) UTI (urinary tract infection) Qualifiers: Urinary tract infection type: acute cystitis Status: AcuteAssessment/Plan : Recurrent UTI associated with renal stone. Cont. Fortaz given h/o pseudomonas and await final cx results. May need prophylactic abx. will switch to PO Levaquin at discharge for 14 days followed by prophylactic Cipro. Keep follow up appt for laser lithotripsy in November. (2) Cellulitis and abscess of foot Status: AcuteAssessment/Plan: left foot with mild overlying erythema-will follow (3) Vrclbkd-Rsbdd-Xoakg disease Status: ChronicAssessment/Plan: Advanced. Supportive care. (4) Diabetes mellitus type II, uncontrolled Qualifiers: Diabetes mellitus complication status: with neurologic complications Diabetes mellitus complication detail: with polyneuropathy Diabetes mellitus superintendent marine oil terminal insulin use: with superintendent marine oil terminal use Qualifier Code: (E11.42) Type 2 diabetes mellitus with diabetic polyneuropathy Status: Chronic Assessment/Plan: Improved. Long standing poor control/compliance. Cont. current tx. (5) Hypertension Qualifiers: Hypertension type: essential hypertension Qualifier Code: (I10) Essential (primary) hypertension Status: ChronicAssessment/Plan: stable (6) Neuropathy Status: ChronicAssessment/Plan: Due to CMT dz and diabetes (7) Bursitis, knee Qualifiers: Laterality: left Qualifier Code: (M70.52) Other bursitis of knee, left knee Status: ChronicAssessment/Plan: chronic, stable-encourage patient to avoid crawling (8) Hypokalemia Status: ResolvedAssessment/Plan: mild - replace VTE Prophylaxis: Lovenox. Disposition: Anticipate d/c to [facility] in am(bed not available today)
[2016-10-16] MEDS: POTASSIUM CHLORIDE 20 MEQ TAB.PRT.SR PO SCH ×2 (14:22→20:55)
[2016-10-16] MEDS: ENOXAPARIN SODIUM 40 MG/0.4 ML SYRINGE SUB-Q SCH (17:19)
[2016-10-16] MEDS: MAGNESIUM HYDROXIDE/AL HYDROX 30 ML UDCUP PO PRN ×2 (17:19→20:57)
[2016-10-16] MEDS ORDERED: LEVOFLOXACIN 250 MG TABLET PO SCH (17:30)
[2016-10-16] MEDS: INSULIN GLARGINE (DOSE) 100 UNITS/ML UNIT SUB-Q SCH (20:55)
[2016-10-16] MEDS: GABAPENTIN 300 MG CAPSULE PO SCH (20:55)
[2016-10-16] MEDS: IBUPROFEN 600 MG TABLET PO PRN (22:04)
[2016-10-17] MEDS: MAGNESIUM HYDROXIDE/AL HYDROX 30 ML UDCUP PO PRN ×2 (05:49→13:20)
[2016-10-17] MEDS: ACETAMINOPHEN 325 MG TABLET PO PRN ×2 (06:03→13:21)
[2016-10-17 06:15] LABS: ABSOLUTE NEUTROPHIL COUNT 6.8 K/mm3 (1.8-7.7); BASO # 0.1 K/mm3 (0.0-0.2); BASO % 0.7 % (0.2-1.0); EOS # 0.9 (0.0-0.5); EOS % 7.3 % (0.9-2.9); HEMATOCRIT 34.2 % (32.0-52.0); HEMOGLOBIN 11.4 gm/l (14.0-18.0); IMM NEUT% 0.3 % (0-1); LYMPH # 2.5 (1.0-4.8); LYMPH % 21.2 % (15-45); MEAN CELL VOLUME 85.9 fl (80.0-94.0); MEAN CORPUSCULAR HEMOGLOBIN 28.6 pg (27.0-31.0); MEAN CORPUSCULAR HGB CONC 33.3 g/dl (33.0-37.0); MEAN PLATELET VOLUME 10.6 fl (7.4-10.4); MONO # 1.4 (0.0-0.8); MONO % 12.2 % (4-12); NEUT % 58.3 % (43-75); PLATELET COUNT 250 K/mm3 (130-400); RED CELL DISTRIBUTION WIDTH 13.3 % (11.5-14.5)
[2016-10-17] MEDS: BETAMETHASONE DIPROPIONATE TP SCH (09:12)
[2016-10-17] MEDS: CLOTRIMAZOLE TP SCH (09:12)
[2016-10-17] MEDS: OXYBUTYNIN CHLORIDE 5 MG TAB.XL PO SCH (09:12)
[2016-10-17] MEDS: GLIPIZIDE 5 MG PO SCH (09:13)
[2016-10-17] MEDS: DOCUSATE SODIUM 100 MG CAPSULE PO SCH (09:13)
[2016-10-17] MEDS: ATENOLOL 50 MG TABLET PO SCH (09:13)
--- NOTE | 2016-10-17 09:28 | RAD ---
LEFT TOE 3 VIEWS HISTORY: Ulcer at the second left distal interphalangeal joint. COMPARISONS: 09/16/2016. TECHNIQUE: Frontal, lateral, and oblique views of the left foot with lateral view of the left second toe. ALIGNMENT: Residual deformity with midfoot adduction. FRACTURE: No displaced acute fracture. No destructive lesion. SOFT TISSUES: Soft tissue prominence along the base of fifth metatarsal and along the second toe. RADIOOPAQUE FOREIGN BODY: None. Vascular calcifications are evident. IMPRESSION: No new destructive lesion; specifically, the second toe appears grossly intact. Soft tissue prominence along the second toe and along the base of fifth metatarsal. Alignment abnormalities with midfoot adduction as previously noted.
[2016-10-17] MEDS: INSULIN ASPART (DOSE) 100 UNITS/1 ML SUB-Q PRN ×2 (10:50→13:20)
[2016-10-17] MEDS ORDERED: LINEZOLID 600 MG TABLET PO SCH (12:45)
[2016-10-17 15:46] VITALS: BP 147/82
--- NOTE | 2016-10-17 22:37 | DS ---
BENNY FLORES [id number] DATE OF ADMISSION: 10/14/2016 DATE OF DISCHARGE: 10/17/2016 DISCHARGE DIAGNOSES: 1. Cellulitis involving the left foot, presumed due to MRSA, cultures still pending. 2. Bacterial urinary tract infection due to pseudomonas aeruginosa, associated with a left-sided kidney stone, recurrent. 3. Generalized weakness. 4. Uncontrolled adult-onset diabetes. 5. Xvdzany-Thvdj-Ragoc disease, with ulceration over the dorsum of the left 2nd DIP joint, callus formation and necrosis on a small area of the lateral aspect of the left foot, two 1 cm ulcerations on the prepatellar bursa of the left knee, abrasion on the right knee and chronic prepatellar bursitis, left greater than right. TO SUMMARIZE THE ADMISSION AND HOSPITAL COURSE: The patient is a 70-year-old male with Mywugzx-Jkyii-Vriub disease causing peripheral neuropathy associated with chronic wounds on his left lower extremity and both knees, history of Staph aureus infection of his left foot and recurrent urinary tract infections due to pseudomonas aeruginosa, associated with a left-sided kidney stone, who presented to the [facility] Emergency Department with complaints of weakness and an elevated white blood cell count of 16,000. He had evidence of some cellulitic change in his left foot and a recurrent UTI. His blood sugars were uncontrolled, with a blood sugar of 345. Creatinine was 1.1. Lactate was normal. He was referred to the Hospitalist Service for admission and he was initially treated with ertapenem. The pseudomonas was subsequently found to be intermediately sensitive to the ertapenem and this was changed to Levaquin. During the course of his stay and his treatment the cellulitis appeared to worsen slightly and because of this a repeat culture was obtained from the ulceration on the DIP joint of the left 2nd toe, and that is currently pending. The cellulitic area did seem to improve somewhat with the transition to Levaquin, but the final culture to rule-out MRSA is still pending. His urine culture grew-out pseudomonas aeruginosa, which was showing multidrug resistant, but it was sensitive to fluoroquinolones and ceftazidime, as well as gentamycin. He remained afebrile throughout his stay. He showed some improvement in his white blood cell count, down from 16.7 to 11.6, and his renal function remained stable. His glucose showed significant improvement with resumption of his usual home medications. He was felt to be medically stable for discharge to [facility] on 10/17/2016. PHYSICAL EXAMINATION: VITAL SIGNS: Vitals at discharge showed a temperature of 97.9, pulse 73, blood pressure 149/80, respirations 17, oxygen saturation is 95% on room air, body mass index is 26.5 and weight is 79.1 kilograms. GENERAL: This is an elderly male in no acute distress. HEENT: Exam is unremarkable. NECK: Supple, without lymphadenopathy or thyromegaly. LUNGS: Clear to auscultation bilaterally. CARDIOVASCULAR: Reveals a regular rate and rhythm, without a murmur. ABDOMEN: Soft, nontender and nondistended, with positive bowel sounds. EXTREMITIES: Show some bilateral prepatellar bursal swelling, left greater than right. He has two ulcerations over the left prepatellar bursa, partial thickness, each measuring about a centimeter in size. Superficial abrasion over the right knee. He has an ulceration over the 2nd DIP joint of the left foot. He does not appear to have bone exposure or joint involvement. He has cellulitis involving the left 2nd toe extending over to the dorsum of the foot. This has been stable since admission. He has a callus, with eschar formation on the lateral aspect of the left foot, measuring about a centimeter in size, which is unchanged. There are no areas of fluctuance. Plain films of the foot and the toes show no bony erosion. LABS: Laboratory studies at discharge showed a sodium of 140, potassium 3.8, creatinine 0.9 and a glucose of 170. CBC shows a white count of 11.6, hemoglobin 11.4 and a platelet count of 250,000. DISCHARGE MEDICATIONS: 1. Levaquin 500 mg daily for ten days, followed by 250 mg daily for thirty days for UTI suppression until he can see Dr. Medina. 2. He will take Zyvox 600 mg twice daily for ten days. The course of this therapy may be shortened depending on the results of his culture in the next 48 hours. 3. He will take clotrimazole 1% cream to apply to the rash in the scrotal area felt to be yeast. He will continue Tylenol 650 mg every six hours as needed for pain or fever. 4. Tylenol PM one at bedtime as needed for sleep. 5. Atenolol 50 mg daily. 6. Vitamin D3, 50,000 units once a week. 7. Neurontin 600 mg at bedtime. 8. Glipizide ER 10 mg daily. 9. Ibuprofen 600 mg at bedtime as needed. 10. Lantus insulin 30 units sub-Q at bedtime. 11. Metformin 500 mg twice a day with meals. 12. Ditropan XL 5 mg daily. 13. Propranolol 40 mg daily as needed for his tremor has been discontinued due to duplication of Beta Neena therapy. IMMUNIZATIONS: He had an influenza vaccine on 07/12/2015 and had a pneumococcal vaccination on 05/20/2013. PLAN: He will be going to [facility] and will get skin care, bowel care and podiatry care per iroquois protocol. He will get PT and OT services to evaluate and treat. Weightbearing and activity as tolerated. Diabetic diet. CBGs daily and as needed. Call provider for glucose greater than 350 or less than 60. He will have Medihoney applied to the wounds after cleaning and cover with a clean dressing daily. He will follow-up with his primary care provider Dr. Nimesh Rodriguez on 10/24/2016 at 1:15 P.M. He will have a CBC and a basic metabolic panel drawn in one week due to the risk of myelosuppression from his linezolid. The results will be sent to Dr. Nimesh Rodriguez. He will follow-up with Dr. El Rainey on 10/24/2016 at 10:30 A.M. cc: Dr. Nimesh Rainey
== END 2016-10-17 15:50 | DRG 603 ==
LOC: ED 10:39 → MS 17:20
PROVIDERS: ADMIT Family Medicine; ATTEND Family Medicine
DX: L03.032 Cellulitis of left toe (principal); N39.0 Urinary tract infection, site not specified; L97.529 Non-pressure chronic ulcer of other part of left foot with unspecified severity; N20.0 Calculus of kidney; E11.9 Type 2 diabetes mellitus without complications; M70.42 Prepatellar bursitis, left knee; G60.0 Hereditary motor and sensory neuropathy; E11.40 Type 2 diabetes mellitus with diabetic neuropathy, unspecified; Z79.4 Long term (current) use of insulin; K21.9 Gastro-esophageal reflux disease without esophagitis; I10 Essential (primary) hypertension; B95.62 Methicillin resistant Staphylococcus aureus infection as the cause of diseases classified elsewhere; B96.5 Pseudomonas (aeruginosa) (mallei) (pseudomallei) as the cause of diseases classified elsewhere; R53.1 Weakness; B96.89 Other specified bacterial agents as the cause of diseases classified elsewhere

== ENCOUNTER 2016-12-01 14:52 | Emergency (ER) | payer MEDICARE, OTHER ==
[2016-12-01 15:39] LABS: ABSOLUTE NEUTROPHIL COUNT 7.3 K/mm3 (1.8-7.7); BASO # 0.1 K/mm3 (0.0-0.2); BASO % 0.8 % (0.2-1.0); EOS # 0.4 (0.0-0.5); EOS % 3.4 % (0.9-2.9); HEMATOCRIT 40.7 % (32.0-52.0); HEMOGLOBIN 13.8 gm/l (14.0-18.0); IMM NEUT% 0.3 % (0-1); LYMPH # 2.2 (1.0-4.8); LYMPH % 20.1 % (15-45); MEAN CORPUSCULAR HEMOGLOBIN 28.8 pg (27.0-31.0); MEAN CORPUSCULAR HGB CONC 33.9 g/dl (33.0-37.0); MEAN PLATELET VOLUME 10.4 fl (7.4-10.4); MONO # 0.9 (0.0-0.8); NEUT % 67.4 % (43-75); PLATELET COUNT 258 K/mm3 (130-400); RED CELL DISTRIBUTION WIDTH 14.1 % (11.5-14.5)
[2016-12-01 15:53] LABS: ALB/GLOB RATIO 1.1 (>1.0); ALBUMIN 3.9 gm/dL (3.5-5.7); CALCIUM 9.7 mg/dL (8.6-10.3)
[2016-12-01] MEDS ORDERED: SODIUM CHLORIDE 0.9% 1,000 ML ONE (16:10)
[2016-12-01] MEDS ORDERED: CEFTRIAXONE SODIUM 1 G VIAL ONE (16:22)
[2016-12-01] MEDS ORDERED: SODIUM CHLORIDE 0.9% 50 ML IV ONE (16:22)
[2016-12-01 16:36] LABS: VENOUS BLOOD GAS HCO3 22.9 mmol/L (22.0-27.0)
[2016-12-01 16:37] LABS: VENOUS BLOOD GAS BASE EXCESS -0.7 mmol/L (-2.0-2.0)
[2016-12-01 17:36] LABS: ACETONE,SERUM NEGATIVE (NEGATIVE)
[2016-12-01 17:45] LABS: URINE BILIRUBIN NEGATIVE (NEGATIVE); URINE BLOOD 4+ (NEGATIVE); URINE GLUCOSE (UA) 3+ (NEGATIVE); URINE LEUKOCYTE ESTERASE TRACE (NEGATIVE); URINE NITRITE NEGATIVE (NEGATIVE); URINE PROTEIN 2+ (NEGATIVE); URINE UROBILINOGEN NORMAL (0-1 mg/dl)
[2016-12-01 17:58] LABS: URINE COLOR YELLOW
[2016-12-01 17:59] LABS: URINE APPEARANCE SLIGHTLY HAZY
[2016-12-01 18:28] LABS: URINE BACTERIA TRACE; URINE EPITHELIAL CELLS 0-2 /hpf; URINE WBC 20-30 /hpf
== END 2016-12-01 18:06 | disposition home or self-care (01) ==
LOC: ED 14:52
DX: S91.105A Unspecified open wound of left lesser toe(s) without damage to nail, initial encounter (principal); E11.65 Type 2 diabetes mellitus with hyperglycemia; E86.0 Dehydration; I10 Essential (primary) hypertension; F17.220 Nicotine dependence, chewing tobacco, uncomplicated; Z79.4 Long term (current) use of insulin; Z79.84 Long term (current) use of oral hypoglycemic drugs
CPT/HCPCS: 82009; 82803; 85025; 87086; 80053; 84484; 81001; 99284 ×2; 96365; 96366; 82962; J0696; J7030; J7050

== ENCOUNTER 2016-12-13 14:53 | Observation (INO) | payer MEDICARE, OTHER ==
[2016-12-13] MEDS ORDERED: LACTATED RINGERS 1,000 ML ONE (17:19)
[2016-12-13 17:31] LABS: ABSOLUTE NEUTROPHIL COUNT 7.7 K/mm3 (1.8-7.7); BASO # 0.1 K/mm3 (0.0-0.2); BASO % 0.9 % (0.2-1.0); EOS # 0.4 (0.0-0.5); EOS % 3.3 % (0.9-2.9); HEMATOCRIT 41.7 % (32.0-52.0); IMM NEUT% 0.3 % (0-1); LYMPH # 2.3 (1.0-4.8); LYMPH % 19.4 % (15-45); MEAN CELL VOLUME 85.1 fl (80.0-94.0); MEAN CORPUSCULAR HEMOGLOBIN 28.6 pg (27.0-31.0); MEAN CORPUSCULAR HGB CONC 33.6 g/dl (33.0-37.0); MEAN PLATELET VOLUME 10.7 fl (7.4-10.4); MONO # 1.2 (0.0-0.8); MONO % 10.4 % (4-12); NEUT % 65.7 % (43-75); PLATELET COUNT 303 K/mm3 (130-400); RED CELL DISTRIBUTION WIDTH 13.9 % (11.5-14.5)
[2016-12-13 17:44] LABS: CALCIUM 9.7 mg/dL (8.6-10.3)
[2016-12-13] MEDS ORDERED: POLYETHYLENE GLYCOL 3350 17 G POWD.SUSP PO PRN (17:52)
[2016-12-13] MEDS ORDERED: BISACODYL 10 MG SUP PR PRN (17:52)
[2016-12-13] MEDS ORDERED: BLISTEX LIPSTICK 1 EACH TP PRN (17:52)
[2016-12-13] MEDS ORDERED: BISACODYL 5 MG TABLET.EC PO PRN (17:52)
[2016-12-13] MEDS ORDERED: MAGNESIUM HYDROXIDE 30 ML UDCUP PO PRN (17:52)
[2016-12-13] MEDS ORDERED: VANCOMYCIN HCL 0 G in SODIUM CHLORIDE 0.9% 250 ML IV SCH (18:30)
[2016-12-13 19:43] VITALS: BMI 26.6
--- NOTE | 2016-12-13 19:51 | RAD ---
TOE OR TOES LEFT COMPARISON: None. HISTORY: Second toe ulcer. Possible osteomyelitis. FINDINGS: Views: The left toes dorsal plantar, medial oblique, and lateral Bones: Normal mineralization. No bone destruction or fracture. Joints: Normal. Soft tissues: Vascular calcification IMPRESSION: 1. No radiographic evidence of osteomyelitis of the left toes.
[2016-12-13] MEDS ORDERED: PUMP TUBING ONE (20:45)
[2016-12-13] MEDS: MUPIROCIN CALCIUM 2% OINT 22 APPLIC/22 G TUBE TP SCH (20:59)
[2016-12-13] MEDS: ENOXAPARIN SODIUM 40 MG/0.4 ML SYRINGE SUB-Q SCH (20:59)
[2016-12-13] MEDS: GABAPENTIN 300 MG CAPSULE PO SCH (21:00)
[2016-12-13] MEDS: SODIUM CHLORIDE 0.9% 100 ML IV PRN (21:00)
[2016-12-13] MEDS: DOCUSATE SODIUM 100 MG CAPSULE PO SCH (21:00)
[2016-12-13] MEDS: LEVOFLOXACIN 750 MG/D5W 150 ML 750 MG in Premix (D5W) 150 ml Bag 1 EACH IV SCH (21:00)
[2016-12-13] MEDS ORDERED: VANCOMYCIN HCL 2.25 G in SODIUM CHLORIDE 0.9% 500 ML IV ONE (22:00)
[2016-12-13] MEDS: INSULIN GLARGINE (DOSE) 100 UNITS/ML UNIT SUB-Q SCH (22:32)
[2016-12-13] MEDS: INSULIN ASPART (DOSE) 100 UNITS/1 ML SUB-Q PRN (22:32)
[2016-12-13] MEDS: ACETAMINOPHEN 325 MG TABLET PO PRN (22:36)
--- NOTE | 2016-12-13 23:15 | HP ---
BENNY FLORES [id number] DATE OF : 1945 DATE OF SERVICE: 12/13/2016 CHIEF COMPLAINT: Acute on chronic ulcerations in the setting of chronic debility and recent worsening of housing conditions. HISTORY OF PRESENT ILLNESS: Mr. 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 He has had repeated admissions due to ulceration of his extensor surfaces from dragging himself around, which is his normal mode of mobility. Apparently over the past week or so his living accommodations have been worse than usual due to him being absent from the home for some period of time, resulting in increased disarray from the numerous cats that live there. Apparently his normal trail through his goods was disrupted and he has been having to drag himself over various objects in an effort to clean-up. Also, the area has been wet due to rain in the area, and so he has been unable to stay up out of the cluttered wet area, and as such his chronic ulcerations over his knees and toes have been worsened. He is supposed to have a laser lithotripsy performed by urology this coming Friday, and instead chose to present to the ER, as he was unable to ensure that he was on the ordered medications preoperatively or to ensure that he had a clean living environment in order to prepare properly for the procedure. He shared with me that he had been taking some of his medications such as his insulin, but other pills he has been unable to take, as he believes they may have been carried-off by an animal. He also states that he has been taking his Cipro that was prescribed by urology, although he admits to having missed several doses probably. He complains of pain in the left 2nd and 3rd toe and the right knee, and is otherwise without acute complaint. He denies any fever, chills or rigors. He does admit to some increased discomfort again in the left toes and right knee from baseline, but denies any luis drainage. On direct questioning, he admits they both appear more red than they had recently. Other than his planned urologic procedures, he denies any urinary complaints, constipation, diarrhea, new focal weakness, confusion, weight loss, weight gain or shortness of breath. REVIEW OF SYSTEMS: As per HPI. All other systems are reviewed and are negative acutely. PAST MEDICAL/SURGICAL HISTORY: 1. Gpzfsyf-Xgaza-Kcqnm syndrome. 2. Peripheral neuropathy. 3. Adult-onset, insulin-dependent diabetes. 4. Diabetic neuropathy. 5. 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 6. Recurrent urinary tract infections. 7. Left kidney nephrolithiasis. 8. Chronic hypertension. 9. Gastroesophageal reflux disease. 10. Benign essential tremor. 11. Intermittent noncompliance with medical therapy. 12. Benign prostatic hypertrophy. 13. Chronic bursitis bilateral knees, left greater than right. 14. Chronic pain. 15. Vitamin D insufficiency. 16. History of prior lithotripsy. 17. History of infected bursa. 18. Insomnia. FAMILY MEDICAL HISTORY: Significant for Umwbcth-Hhjgm-Lvjfg disease. 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 He is a lifelong nonsmoker, with occasional chewing tobacco and casual alcohol intake. He has never been and has no children. His primary social support is a neighbor. ALLERGIES: Penicillin, which is reported as tachycardia. No history of anaphylaxis. HOME MEDICATIONS: 1. Ciprofloxacin 500 mg by mouth daily, prescribed by urology. 2. Tylenol PM at bedtime as needed for insomnia. 3. Atenolol 50 mg by mouth daily. 4. Vitamin D-3, 50,000 units every week. 5. Neurontin 600 mg at bedtime. 6. Glipizide extended-release 10 mg daily. 7. Ibuprofen 600 mg at bedtime as needed. 8. Lantus 30 units sub-Q at bedtime. 9. Metformin 500 mg twice a day. 10. Ditropan XL 5 mg daily. 11. Propranolol 40 mg daily as needed for essential tremor. VACCINATION HISTORY: The patient has had his annual influenza vaccine and was last vaccinated with Pneumovax in 2012. PERTINENT LABS AND DIAGNOSTIC STUDIES: 1. CBC and BMP on 12/13/2016 are reviewed. 2. Microbiology results from the past twelve months through October 2015 were reviewed. 3. No current imaging. PHYSICAL EXAMINATION: VITAL SIGNS: Blood pressure 170/40. Pulse 113. Respirations 16. Temperature 97.9. His O2 sat is 95% on room air. GENERAL: This is a well-nourished, well-developed, appropriate for stated age male in no acute distress, alert and oriented times three. PSYCHIATRIC: Odd mood and affect. Cooperative and interactive. NEUROLOGIC: Cranial nerves II-XII grossly intact. Atrophy of the bilateral lower extremities, primary from the knee down. Contracture of bilateral feet. HEENT: Normocephalic, atraumatic. Extraocular movements are intact. Pupils equal, round and reactive to light and accommodation. Poor dentition. No visible oral ulcers. PULMONARY: Clear to auscultation bilaterally. No wheezes, rhonchi or crackles. CARDIOVASCULAR: Regular rate and rhythm. No murmur, rub or gallop. Radial pulse 90. Good capillary refill. NECK: No JVD. ABDOMEN: Soft, nontender and nondistended, with normoactive bowel sounds. EXTREMITIES: No cyanosis, clubbing or edema in general. SKIN: Bilateral knees have open ulceration of approximately 1/8 of an inch in depth and approximately 3/4 of a centimeter in size, right slightly larger than left, with surrounding erythema primary of the right, and warmth, as well as tenderness to palpation and underlying fluctuance of the bursa. No exudate. Bilateral 2nd toes with ulceration over the distal interphalangeal joint, left greater than right. CONDITION: Slightly disheveled. Clothes are soiled, with visible mud and possible fecal material. ASSESSMENT/PLAN: 1. Left 2nd toe ulceration, with suspicion for possible cellulitis and/or early osteomyelitis based on location and depth. I reviewed prior culture results and do not see a history of MRSA, although patient has frequent hospitalizations, so I will cover him for both MRSA with gram-positive coverage of vancomycin, as well as gram-negative coverage with Levaquin, which also addresses his chronic urinary tract infections and upcoming urologic procedure. I will obtain a plain film of that left foot. 2. Right foot 2nd toe ulceration, with no luis infection. 3. Left knee ulceration, with chronic bursitis. 4. Right knee ulceration, with chronic bursitis and an early cellulitis, which we will cover as discussed above with vancomycin and Levaquin. 5. Chronic urinary tract infection, with upcoming urologic procedure. Again, this will be covered adequately with the full-dose Levaquin. Plan is for a lithotripsy via laser on Friday through urology service. We will notify them of his admission. 6. Poorly controlled adult-onset, insulin-dependent diabetes. We will restart his Lantus and place him on a medium sliding scale with low threshold, to increase this to a higher sliding scale in the setting of infection. We will restart his oral agents once it is clear that he will not require contrast within the next 24-48 hours. A hemoglobin A1C will be drawn. 7. Essential hypertension. We will restart his home medications and monitor blood pressures. 8. Chronic pain. He has Tylenol ordered PRN as per his home regimen. We may need to add back NSAIDs. We will reassess pain. 9. Deqsfpy-Duada-Sujfm disease, with advancing debility. This is primarily effecting his successful living independently. There is a care conference scheduled for Friday to address this. The patient is understandably very anxious regarding his living arrangements, as he wishes to remain independent. 10. Peripheral neuropathy due to advancing Uxqfgdi-Qveia-Wjuey disease, as well as diabetic neuropathy. Will continue his home Neurontin. 11. BPH. Will continue home Hytrin. 12. Essential tremor. No luis treatment as an inpatient. 13. Full code. 14. DVT prophylaxis with SCDs in anticipation of possible procedure. Patient is at his baseline mobility. DISPOSITION: The patient will likely be discharged Friday or Friday to a level of care to be decided.
[2016-12-14 00:48] LABS: SPECIFIC GRAVITY 1.015 (1.001-1.030); URINE APPEARANCE CLEAR; URINE BILIRUBIN NEGATIVE (NEGATIVE); URINE BLOOD 4+ (NEGATIVE); URINE COLOR YELLOW; URINE GLUCOSE (UA) 3+ (NEGATIVE); URINE LEUKOCYTE ESTERASE NEGATIVE (NEGATIVE); URINE NITRITE NEGATIVE (NEGATIVE); URINE PROTEIN 1+ (NEGATIVE); URINE UROBILINOGEN NORMAL (0-1 mg/dl)
[2016-12-14 00:59] LABS: URINE BACTERIA RARE; URINE EPITHELIAL CELLS 0 /hpf; URINE RBC 50-60 /hpf; URINE WBC NEG /hpf
[2016-12-14 06:28] LABS: ABSOLUTE NEUTROPHIL COUNT 4.2 K/mm3 (1.8-7.7); BASO # 0.1 K/mm3 (0.0-0.2); BASO % 1.1 % (0.2-1.0); EOS # 0.5 (0.0-0.5); EOS % 5.4 % (0.9-2.9); HEMATOCRIT 34.4 % (32.0-52.0); HEMOGLOBIN 11.7 gm/l (14.0-18.0); IMM NEUT% 0.2 % (0-1); LYMPH # 3.1 (1.0-4.8); LYMPH % 33.8 % (15-45); MEAN CELL VOLUME 83.9 fl (80.0-94.0); MEAN CORPUSCULAR HEMOGLOBIN 28.5 pg (27.0-31.0); MEAN PLATELET VOLUME 11.4 fl (7.4-10.4); MONO # 1.2 (0.0-0.8); MONO % 13.3 % (4-12); NEUT % 46.2 % (43-75); PLATELET COUNT 237 K/mm3 (130-400)
[2016-12-14 06:57] LABS: CALCIUM 8.6 mg/dL (8.6-10.3)
--- NOTE | 2016-12-14 07:19 | PDOC43 ---
- Subjective Chief Complaint: Cellulitis, Ulcer Subjective: Reports Pain Tolerable, Reports Tolerating Diet Well, Reports Urinating Without Difficulty, Reports Other (anxiety regarding living situation , insomnia) - Objective Vital Signs Temperature 98.6 F 12/14/16 01:25 Pulse Rate 95 12/14/16 01:25 Respiratory Rate 18 12/14/16 01:25 Blood Pressure 160/62 12/14/16 01:25 O2 Saturation by Pulse Oximetry 100 12/14/16 01:25 Oxygen Delivery Method Room Air Oxygen Flow Rate 0 Intake and Output 12/12/16 12/13/16 12/14/16 23:59 23:59 23:59 Intake Total 880 Output Total 500 Balance 380 General: Alert, Oriented x3, No Acute Distress Lungs: Clear to Auscultation Bilaterally, Normal Air Movement Cardiovascular: Regular Rate and Rhythm, Normal S1, Normal S2 Abdomen: Soft, Normal Bowel Sounds Extremities: Pulses Diminished but Palpable Skin: Other (right knee: diminshed erythema and warmth, dressing C/D/I left knee : ulcer C/D, no erythema Left 2nd toe DIP: ulcer is dry, erythema resolving, edema improved and pain resolved Right 2nd toe DIP: ulcer is dry, no erythema or pain) Neurological: Normal Speech Psych/Mental Status: Anxious Laboratory 12/14/16 05:30 12/14/16 05:30 12/14/16 12/13/16 05:30 21:02 RBC 4.10 L POC Capillary Glucose 285 H Current Medications: Current meds reviewed in EMR. - Problems: Assessment/Plan (1) Cellulitis and abscess of foot Status: AcuteAssessment/Plan: 2nd toe xray negative for osteo findings, exam improved with antibiotics, continue IV Vanc/Levaquin at least through anticipated procedure Friday then tailor for d/c as able (2) Cellulitis of knee, right Status: AcuteAssessment/Plan: Exam shows appropriate improvement on Vanc/Levaquin (3) UTI (urinary tract infection) Qualifiers: Urinary tract infection type: acute cystitis Status: ChronicAssessment/ Plan: UA shows suggested resolution of p.auriginosa UTI. Continue FQ coverage. Urology aware and agrees (4) Diabetes mellitus type II, uncontrolled Qualifiers: Diabetes mellitus complication status: with neurologic complications Diabetes mellitus complication detail: with polyneuropathy Diabetes mellitus termite control representative insulin use: with termite control representative use Qualifier Code: (E11.42) Type 2 diabetes mellitus with diabetic polyneuropathy Status: Chronic Assessment/Plan: Currently on Lantus and SSI. Can add back oral agents at any time but held on admit given IV abx, anticipated procedure. (5) Ulcer, neuropathic Status: ChronicAssessment/Plan: POA Bilateral knees and 2nd toes, due to limited mobility, STEPS wound care consult (6) Hypertension Qualifiers: Hypertension type: essential hypertension Qualifier Code: (I10) Essential (primary) hypertension Status: Chronic (7) GERD (gastroesophageal reflux disease) Qualifiers: Esophagitis presence: without esophagitis Qualifier Code: (K21.9) Gastro-esophageal reflux disease without esophagitis Status: Chronic (8) Neuropathy Status: Chronic (9) BPH (benign prostatic hyperplasia) Status: Chronic (10) Renal calculus, left Status: ChronicAssessment/Plan: Friday stone removal (11) Qmvoukd-Fwnsf-Bgkuh disease Status: Chronic (12) Living rough Status: ChronicAssessment/Plan: Care conference scheduled for Friday. Chronic, detiorating condition. Noted this am he does not recall our interaction yesterday but I see no mention of dementia in the chart. He is anxious and I will add a low dose anxiolytic for bed time VTE Prophylaxis: ICP Disposition: Friday or Friday likely
[2016-12-14] MEDS: DOCUSATE SODIUM 100 MG CAPSULE PO SCH ×3 (08:51→20:33)
[2016-12-14] MEDS: FINASTERIDE 5 MG TABLET PO SCH (08:52)
[2016-12-14] MEDS: ATENOLOL 50 MG TABLET PO SCH (08:52)
[2016-12-14] MEDS: LOSARTAN POTASSIUM 50 MG TABLET PO SCH (08:52)
[2016-12-14] MEDS: TAMSULOSIN HCL 0.4 MG CAPSULE.DR PO SCH (08:52)
[2016-12-14] MEDS: OXYBUTYNIN CHLORIDE 5 MG TAB.XL PO SCH (08:53)
[2016-12-14] MEDS: MUPIROCIN CALCIUM 2% OINT 22 APPLIC/22 G TUBE TP SCH ×2 (08:53→22:47)
[2016-12-14] MEDS: INSULIN ASPART (DOSE) 100 UNITS/1 ML SUB-Q PRN ×3 (12:09→21:38)
[2016-12-14] MEDS: GABAPENTIN 300 MG CAPSULE PO SCH (20:30)
[2016-12-14] MEDS: ENOXAPARIN SODIUM 40 MG/0.4 ML SYRINGE SUB-Q SCH (20:32)
[2016-12-14] MEDS: INSULIN GLARGINE (DOSE) 100 UNITS/ML UNIT SUB-Q SCH (20:33)
[2016-12-14] MEDS: ACETAMINOPHEN 325 MG TABLET PO PRN (20:33)
[2016-12-14] MEDS: LEVOFLOXACIN 750 MG/D5W 150 ML 750 MG in Premix (D5W) 150 ml Bag 1 EACH IV SCH (20:47)
[2016-12-14] MEDS: VANCOMYCIN HCL 2 G in SODIUM CHLORIDE 0.9% 500 ML IV SCH (22:48)
[2016-12-14] MEDS: ALPRAZOLAM 0.25 MG TABLET PO PRN (22:49)
[2016-12-15 06:19] LABS: ABSOLUTE NEUTROPHIL COUNT 4.3 K/mm3 (1.8-7.7); BASO # 0.1 K/mm3 (0.0-0.2); EOS # 0.5 (0.0-0.5); EOS % 5.6 % (0.9-2.9); HEMATOCRIT 33.7 % (32.0-52.0); HEMOGLOBIN 11.5 gm/l (14.0-18.0); IMM NEUT% 0.2 % (0-1); LYMPH # 3.2 (1.0-4.8); LYMPH % 34.7 % (15-45); MEAN CELL VOLUME 84.5 fl (80.0-94.0); MEAN CORPUSCULAR HEMOGLOBIN 28.8 pg (27.0-31.0); MEAN CORPUSCULAR HGB CONC 34.1 g/dl (33.0-37.0); MEAN PLATELET VOLUME 11.4 fl (7.4-10.4); MONO # 1.2 (0.0-0.8); MONO % 13.2 % (4-12); NEUT % 45.3 % (43-75); PLATELET COUNT 224 K/mm3 (130-400); RED CELL DISTRIBUTION WIDTH 14.1 % (11.5-14.5)
[2016-12-15 06:36] LABS: CALCIUM 8.8 mg/dL (8.6-10.3)
[2016-12-15] MEDS: LOSARTAN POTASSIUM 50 MG TABLET PO SCH (08:46)
[2016-12-15] MEDS: TAMSULOSIN HCL 0.4 MG CAPSULE.DR PO SCH (08:46)
[2016-12-15] MEDS: OXYBUTYNIN CHLORIDE 5 MG TAB.XL PO SCH (08:46)
[2016-12-15] MEDS: ATENOLOL 50 MG TABLET PO SCH (08:46)
[2016-12-15] MEDS: DOCUSATE SODIUM 100 MG CAPSULE PO SCH ×2 (08:46→22:13)
[2016-12-15] MEDS: FINASTERIDE 5 MG TABLET PO SCH (08:46)
[2016-12-15] MEDS: ACETAMINOPHEN 325 MG TABLET PO PRN ×2 (09:46→17:10)
--- NOTE | 2016-12-15 11:09 | PDOC43 ---
- Subjective Chief Complaint: Cellulitis of right knee and left toe Subjective: Reports Pain Tolerable, Reports Tolerating Diet Well, Reports Adequate Oral Intake, Reports Bowel Movement, Reports Urinating Without Difficulty - Objective Vital Signs Temperature 97.9 F 12/15/16 07:27 Pulse Rate 63 12/15/16 07:27 Respiratory Rate 18 12/15/16 07:27 Blood Pressure 134/72 12/15/16 07:27 O2 Saturation by Pulse Oximetry 96 12/15/16 07:27 Oxygen Delivery Method Room Air Oxygen Flow Rate 0 Intake and Output 12/13/16 12/14/16 12/15/16 23:59 23:59 23:59 Intake Total 1680 1355 Output Total 2725 450 Balance -1045 905 General: Alert, Oriented x3, Cooperative, No Acute Distress HEENT: Atraumatic, PERRLA, EOMI, Mucous membr. moist/pink Lungs: Clear to Auscultation Bilaterally, Normal Air Movement Cardiovascular: Regular Rate and Rhythm, Normal S1, Normal S2 Abdomen: Soft, Normal Bowel Sounds, Non-Distended Extremities: Other (contracted as per baseline) Skin: Normal Color, Warm, Dry, Other (right knee ulcer clean based, surrounding erythema resolved left second toe, mild odor, no exudate, no pain with manipulation, erythema resolved) Laboratory 12/15/16 05:30 12/15/16 05:30 12/15/16 12/15/16 12/14/16 07:19 05:30 20:43 RBC 3.99 L POC Capillary Glucose 137 H 289 H 12/14/16 12/14/16 17:16 12:03 RBC POC Capillary Glucose 240 H 200 H Current Medications: Current meds reviewed in EMR. - Problems: Assessment/Plan (1) Cellulitis and abscess of foot Status: AcuteAssessment/Plan: 2nd toe xray negative for osteo findings, exam shows resolution of erythema with antibiotics, continue IV Vanc/Levaquin D3 as of this evening. Will continue IV at least through anticipated procedure Friday then tailor or d/c prior to discharge home. (2) Cellulitis of knee, right Status: AcuteAssessment/Plan: Exam shows appropriate improvement on Vanc/Levaquin (3) UTI (urinary tract infection) Qualifiers: Urinary tract infection type: acute cystitis Status: ChronicAssessment/ Plan: UA on admit showed resolution of acute UTI with outpatient cipro course that was to be continued. Continue IV FQ Leva coverage. (4) Diabetes mellitus type II, uncontrolled Qualifiers: Diabetes mellitus complication status: with neurologic complications Diabetes mellitus complication detail: with polyneuropathy Diabetes mellitus fdc insulin use: with terminal operations supervisor use Qualifier Code: (E11.42) Type 2 diabetes mellitus with diabetic polyneuropathy Status: Chronic Assessment/Plan: Currently on Lantus and SSI. Can add back oral agents at any time but held on admit given IV abx, anticipated procedure. (5) Ulcer, neuropathic Status: ChronicAssessment/Plan: POA Bilateral knees and 2nd toes, due to limited mobility, STEPS wound care consult (6) Hypertension Qualifiers: Hypertension type: essential hypertension Qualifier Code: (I10) Essential (primary) hypertension Status: Chronic (7) GERD (gastroesophageal reflux disease) Qualifiers: Esophagitis presence: without esophagitis Qualifier Code: (K21.9) Gastro-esophageal reflux disease without esophagitis Status: Chronic (8) Neuropathy Status: Chronic (9) BPH (benign prostatic hyperplasia) Status: ChronicAssessment/Plan: Home medications (10) Renal calculus, left Status: ChronicAssessment/Plan: Friday stone removal (11) Sshlwyz-Miqyx-Nwqxf disease Status: Chronic (12) Living rough Status: ChronicAssessment/Plan: Care conference scheduled for Friday. Chronic, deteriorating condition. Has low dose anxiolytic for bed time prn. Discharge plan depends on care conference and post procedure instructions VTE Prophylaxis: ICP Disposition: Friday or Friday likely
[2016-12-15] MEDS: INSULIN ASPART (DOSE) 100 UNITS/1 ML SUB-Q PRN ×2 (12:07→17:06)
[2016-12-15] MEDS ORDERED: PUMP TUBING ONE (21:19)
[2016-12-15] MEDS: LEVOFLOXACIN 750 MG/D5W 150 ML 750 MG in Premix (D5W) 150 ml Bag 1 EACH IV SCH (21:32)
[2016-12-15] MEDS: SODIUM CHLORIDE 0.9% 100 ML IV PRN (21:33)
[2016-12-15] MEDS ORDERED: SODIUM CHLORIDE 0.9% FLUSH 10 ML ONE (22:07)
[2016-12-15] MEDS ORDERED: IV START KIT ONE (22:08)
[2016-12-15] MEDS: INSULIN GLARGINE (DOSE) 100 UNITS/ML UNIT SUB-Q SCH (22:12)
[2016-12-15] MEDS: ENOXAPARIN SODIUM 40 MG/0.4 ML SYRINGE SUB-Q SCH (22:13)
[2016-12-15] MEDS: DIPHENHYDRAMINE HCL 25 MG CAPSULE PO PRN (22:13)
[2016-12-15] MEDS: GABAPENTIN 300 MG CAPSULE PO SCH (22:13)
[2016-12-16] MEDS: VANCOMYCIN HCL 2 G in SODIUM CHLORIDE 0.9% 500 ML IV SCH ×2 (00:15→21:18)
[2016-12-16] MEDS: ACETAMINOPHEN 325 MG TABLET PO PRN (00:26)
[2016-12-16] MEDS: ALPRAZOLAM 0.25 MG TABLET PO PRN ×2 (00:26→23:53)
[2016-12-16 05:51] LABS: ABSOLUTE NEUTROPHIL COUNT 5.4 K/mm3 (1.8-7.7); BASO # 0.1 K/mm3 (0.0-0.2); EOS # 0.5 (0.0-0.5); EOS % 4.8 % (0.9-2.9); HEMATOCRIT 34.5 % (32.0-52.0); HEMOGLOBIN 11.8 gm/l (14.0-18.0); IMM NEUT% 0.2 % (0-1); LYMPH # 3.5 (1.0-4.8); LYMPH % 32.7 % (15-45); MEAN CELL VOLUME 84.1 fl (80.0-94.0); MEAN CORPUSCULAR HEMOGLOBIN 28.8 pg (27.0-31.0); MEAN CORPUSCULAR HGB CONC 34.2 g/dl (33.0-37.0); MEAN PLATELET VOLUME 10.7 fl (7.4-10.4); MONO # 1.1 (0.0-0.8); MONO % 10.7 % (4-12); NEUT % 50.6 % (43-75); PLATELET COUNT 253 K/mm3 (130-400)
[2016-12-16 06:16] LABS: CALCIUM 8.8 mg/dL (8.6-10.3)
[2016-12-16] MEDS: DOCUSATE SODIUM 100 MG CAPSULE PO SCH ×2 (08:01→21:13)
[2016-12-16] MEDS: TAMSULOSIN HCL 0.4 MG CAPSULE.DR PO SCH (08:02)
[2016-12-16] MEDS: OXYBUTYNIN CHLORIDE 5 MG TAB.XL PO SCH (08:02)
[2016-12-16] MEDS: ATENOLOL 50 MG TABLET PO SCH ×2 (08:02→16:17)
[2016-12-16] MEDS: FINASTERIDE 5 MG TABLET PO SCH (08:02)
[2016-12-16] MEDS: LOSARTAN POTASSIUM 50 MG TABLET PO SCH ×2 (08:02→16:17)
[2016-12-16 08:57] LABS: A1C-GLYCOHEMOGLOBIN 0.7 g/dl; HEMOGLOBIN-GLYCO 10.9 g/dl
--- NOTE | 2016-12-16 11:20 | PDOC43 ---
- Subjective Chief Complaint: Cellulitis of right knee and left toe Patient reported to be agitated with administration of SLUMS testing. Pt reports feeling ok, but expresses he strongly wants to return to his home/ property, even if this shortens his lifespan. Awaiting kidney stone removal. Subjective: Reports Pain Tolerable - Objective Vital Signs Temperature 97.9 F 12/16/16 07:05 Pulse Rate 75 12/16/16 07:05 Respiratory Rate 16 12/16/16 07:05 Blood Pressure 162/97 12/16/16 07:05 O2 Saturation by Pulse Oximetry 98 12/16/16 07:05 Oxygen Delivery Method Room Air Oxygen Flow Rate 0 Vital Signs Last 12 Hours Temp Pulse Resp BP Pulse Ox 12/16/16 07:05 97.9 F 75 16 162/97 98 12/16/16 02:00 98 F 73 16 117/76 97 Intake and Output 12/14/16 12/15/16 12/16/16 23:59 23:59 23:59 Intake Total 1680 2415 1350 Output Total 2725 1500 1300 Balance -1045 915 50 General: Alert, Mild Distress (a little wound up, haley about prospect of placement) Lungs: Clear to Auscultation Bilaterally Cardiovascular: Regular Rate and Rhythm, No Murmur Abdomen: Soft, Normal Bowel Sounds, Non-Distended Extremities: Other (R knee with approx 1 cm full thickness ulceration of skin, not haley cellulitic at this time, no streaking, mild redness.), No Edema Skin: Other (lateral L ankle with scab, unstageable ulcer, 7 mm (est). Dorsum of L 2nd toe with healing ulcer, approx 8 mm, also difficult to assess, appears less than full thickness. R 2nd toe dorsum with unstaged 5 mm ulceration, appears to be only skin breakdown.) Psych/Mental Status: Other Laboratory 12/16/16 05:15 12/16/16 05:15 12/16/16 12/15/16 12/15/16 05:15 22:11 16:58 RBC 4.10 L POC Capillary Glucose 191 H 288 H Hemoglobin A1c 12/15/16 12/14/16 11:49 05:30 RBC POC Capillary Glucose 236 H Hemoglobin A1c 8.2 H Current Medications: Current meds reviewed in EMR. Active Medications Acetaminophen (Tylenol) 650 mg PO Q6H PRN PRN Reason: Pain or Temperature > 100.5 F Last Admin: 12/16/16 00:26 Dose: 650 mg Alprazolam (Xanax) 0.5 mg PO BEDTIME PRN PRN Reason: Anxiety Last Admin: 12/16/16 00:26 Dose: 0.5 mg Atenolol (Tenormin) 50 mg PO DAILY [facility] Last Admin: 12/16/16 08:02 Dose: Not Given Benzocaine/Menthol (Cepacol) 1 each PO PRN PRN PRN Reason: Sore Throat Bisacodyl (Dulcolax) 10 mg UT DAILY PRN PRN Reason: Constipation Bisacodyl (Dulcolax) 5 mg PO DAILY PRN PRN Reason: Constipation Diphenhydramine HCl (Benadryl) 25 - 50 mg PO Q6H PRN PRN Reason: Itching Last Admin: 12/15/16 22:13 Dose: 50 mg Docusate Sodium (Colace) 100 mg PO BID [facility] Last Admin: 12/16/16 08:01 Dose: Not Given Enoxaparin Sodium (Lovenox) 40 mg SUB-Q Q24H [facility] Last Admin: 12/15/16 22:13 Dose: 40 mg Finasteride (Proscar) 5 mg PO DAILY [facility] Last Admin: 12/16/16 08:02 Dose: Not Given Gabapentin (Neurontin) 600 mg PO BEDTIME [facility] Last Admin: 12/15/16 22:13 Dose: 600 mg Sodium Chloride (Sodium Chloride 0.9%) 100 mls @ 25 mls/hr IV PRN PRN PRN Reason: Flush Last Admin: 12/15/16 21:33 Dose: 25 mls/hr Levofloxacin/Dextrose 750 mg/ (Premix (D5W) 150 ml Bag) 150 mls @ 100 mls/hr IV Q24H [facility] Last Admin: 12/15/16 21:32 Dose: 100 mls/hr Vancomycin HCl 2 g/ Sodium (Chloride) 540 mls @ 270 mls/hr IV Q24H [facility] Last Admin: 12/16/16 00:15 Dose: 270 mls/hr Insulin Aspart (Novolog (Dose)) 0 units SUB-Q WM/BEDTIME PRN; Protocol PRN Reason: Blood Sugar > Last Admin: 12/15/16 17:06 Dose: 8 units Insulin Glargine (Lantus (Dose)) 30 units SUB-Q BEDTIME [facility] Last Admin: 12/15/16 22:12 Dose: 30 units Losartan Potassium (Cozaar) 100 mg PO DAILY [facility] Last Admin: 12/16/16 08:02 Dose: Not Given Magnesium Hydroxide (Milk Of Magnesia) 30 ml PO DAILY PRN PRN Reason: Constipation Oxybutynin Chloride (Ditropan Xl) 5 mg PO DAILY [facility] Last Admin: 12/16/16 08:02 Dose: Not Given Petrolatum/Paraffin/Mineral Oil (Blistex) 1 each TP PRN PRN PRN Reason: Dry and/or chapped lips Polyethylene Glycol/Electrolytes (Miralax) 17 g PO DAILY PRN PRN Reason: Constipation Stop: 12/22/16 09:01 Sodium Chloride (Normal Saline 10ml Flush) 10 - 50 ml IV PRN PRN PRN Reason: IV Flush Last Admin: 12/15/16 22:13 Dose: 10 ml Sodium Chloride (Normal Saline 10ml Flush) 10 ml IV Q8HR [facility] Last Admin: 12/16/16 02:44 Dose: 10 ml Tamsulosin HCl (Flomax) 0.4 mg PO DAILY [facility] Last Admin: 12/16/16 08:02 Dose: Not Given - Problems: Assessment/Plan (1) Cellulitis and abscess of foot Status: AcuteAssessment/Plan: Bacterial, recurrent. Blood cultures negative so far. Factors include diabetes and neuropathy. 2nd toe xray negative for osteo findings, exam shows resolution of erythema with antibiotics, (Vanco, Levaquin) Will continue IV at least through anticipated procedure Friday then consider revision prior to discharge home, FQ could be a choice in patient with diabetic foot ulcer (2) Cellulitis of knee, right Status: AcuteAssessment/Plan: with full thickness skin ulceration Also suspected bacterial, blood cx negative. Factors include neuropathy, diabetes, ambulation on knees, and living rough situation. Exam shows appropriate improvement on Vanco/Levaquin; but anticipate DC on FQ (3) Lbxgbpr-Wwvag-Mjfkf disease Status: ChronicAssessment/Plan: Ongoing, chronic, contributing to ambulatory difficulty (4) Diabetes mellitus type II, uncontrolled Qualifiers: Diabetes mellitus complication status: with neurologic complications Diabetes mellitus complication detail: with polyneuropathy Diabetes mellitus half-way insulin use: with half-way use Qualifier Code: (E11.42) Type 2 diabetes mellitus with diabetic polyneuropathy Status: Chronic Assessment/Plan: Currently on Lantus and SSI. Can add back oral agents at any time but held on admit given IV abx, anticipated procedure. BG doing well Laboratory Tests 10/06/15 10/06/15 10/06/15 05:30 08:36 12:54 Glucose POC Capillary Glucose 206 H 202 H Calcium 8.2 L 12/15/16 12/15/16 12/15/16 07:19 11:49 16:58 Glucose POC Capillary Glucose 137 H 236 H 288 H Calcium 12/15/16 12/16/16 12/16/16 22:11 05:15 08:06 Glucose 163 H POC Capillary Glucose 191 H 100 Calcium (5) Renal calculus, left Status: ChronicAssessment/Plan: Friday stone removal, appreciate urologic care Microscopic hematuria noted on UA (6) Dementia Qualifiers: Dementia type: unspecified type Status: SuspectedAssessment/Plan: SLUMS eval , suspect some degree of dementia complicating compliance and home situation/placement VTE Prophylaxis: ICP Disposition: Consider for DC Friday, Patient resistant to placement, but does indicate he would accept [facility].
[2016-12-16] MEDS ORDERED: OPIUM/BELLADONNA ALKALOIDS 1 EACH SUP PR ONE (11:27)
[2016-12-16] MEDS ORDERED: PROPOFOL 200 MG/20 ML VIAL IV ONE (12:30)
[2016-12-16] MEDS ORDERED: LIDOCAINE 2% (MULTI DOSE) 10 ML VIAL ONE (12:30)
[2016-12-16] MEDS ORDERED: FENTANYL 100 MCG/2 ML VIAL ONE (12:30)
[2016-12-16] MEDS ORDERED: ONDANSETRON 4 MG/2ML 2 ML VIAL ONE (12:30)
[2016-12-16] MEDS ORDERED: GENTAMICIN SULFATE 800 MG/20 ML VIAL ONE (12:30)
[2016-12-16] MEDS ORDERED: SODIUM CHLORIDE 0.9% 50 ML VIAL ONE (12:30)
[2016-12-16] MEDS ORDERED: IOPAMIDOL 300 (61%) 30 ML SDV ONE (12:30)
[2016-12-16] MEDS ORDERED: EPHEDRINE SULFATE UD SYR 25 MG 25 MG/5 ML SYRINGE IV ONE (12:30)
[2016-12-16] MEDS ORDERED: GLYCOPYRROLATE 0.2 MG/ML 1ML VIAL ONE (12:30)
[2016-12-16] MEDS ORDERED: ROCURONIUM BROMIDE 10 MG/ML DOSE IV ONE (12:30)
[2016-12-16] MEDS ORDERED: NEOSTIGMINE METHYLSULFATE 1 MG/ML DOSE ONE (12:30)
[2016-12-16] MEDS ORDERED: DEXAMETHASONE SOD PHOS 4 MG/1 ML VIAL ONE (12:30)
[2016-12-16] MEDS ORDERED: LACTATED RINGERS 1,000 ML IV.SOLN ONE (12:30)
[2016-12-16] MEDS ORDERED: SODIUM CHLORIDE 0.9% 100 ML BAG IV ONE (12:30)
[2016-12-16] MEDS ORDERED: PROMETHAZINE HCL 25 MG/ML VIAL IM PRN (14:43)
[2016-12-16] MEDS ORDERED: ATROPINE SULFATE 0.4 MG/1 ML VIAL IV PRN (14:43)
[2016-12-16] MEDS ORDERED: HYDRALAZINE HCL 20 MG/1 ML VIAL IV PRN (14:43)
[2016-12-16] MEDS ORDERED: LABETALOL HCL 5 MG/ML 20ML VIAL IV PRN (14:43)
[2016-12-16] MEDS ORDERED: FENTANYL 100 MCG/2 ML VIAL IV PRN (14:43)
[2016-12-16] MEDS ORDERED: ONDANSETRON 4 MG/2ML 2 ML VIAL IV PRN (14:43)
[2016-12-16] MEDS ORDERED: NALOXONE HCL 0.4 MG/ML VIAL IV PRN (14:43)
[2016-12-16] MEDS ORDERED: MEPERIDINE 25 MG/ML SYRINGE IV PRN (14:43)
[2016-12-16] MEDS ORDERED: LACTATED RINGERS 1,000 ML IV SCH (14:45)
--- NOTE | 2016-12-16 14:50 | RAD ---
RETROGRADE UROGRAM HISTORY: Retrograde urogram COMPARISONS: Cystogram 11/14/2016 CT abdomen pelvis 09/17/2016 FINDINGS: Multiple fluoroscopic images are provided for review. Retrograde cannulization and opacification of the left collecting system is identified. Filling defect is present along the left upper pole corresponding to the area of calculus on prior CT. By report laser lithotripsy is performed with stone removal. Final images demonstrate delayed pigtail catheter within the left collecting system. Fluoroscopy time: 84.2 seconds IMPRESSION: Retrograde urogram as above. Please see urologist note regarding the procedure for further details.
--- NOTE | 2016-12-16 16:15 | OP ---
BENNY FLORES [id number] DATE OF OPERATION: December 16, 2016 SURGEON: Bonifacio Medina M.D. BOARDING HOUSE MANAGER: None. ANESTHESIA: General. PREOPERATIVE DIAGNOSIS: Large left upper pole renal calculus with history of hematuria and urinary tract infection. POSTOPERATIVE DIAGNOSIS: Large left upper pole renal calculus with history of hematuria and urinary tract infection. PROCEDURE: 1. CYSTOSCOPY. 2. LEFT RETROGRADE URETEROGRAPHY. 3. LEFT URETEROSCOPY WITH HOLMIUM LASER LITHOTRIPSY. 4. PLACEMENT OF A LEFT URETERAL STENT. SPECIMENS: Fragments of left renal calculus. INDICATIONS: The patient is a 71-year-old man with chronic bladder dysfunction and a history of gross hematuria. CT scan demonstrated a 12 to 13 mm calculus in the left renal pelvis without obstruction. He has had a recent culture that was positive for pseudomonas and has been treated with antibiotics. He was prepared for surgery last week and in the interval has been hospitalized for chronic medical conditions and inadequate living situation. FINDINGS: The urethra appeared normal. The prosthetic fossa is approximately 3.5 to 4 cm in length and cystoscopically obstructed on the lateral lobe enlargement of the prostate and a mild bladder neck elevation. Bladder wall is moderately trabeculated. Ureteral orifices are normally disposed. Left ureter was normal on retrograde study but we could clearly see the filling defect of the large calculus which was displaced into the upper pole infundibular system. The stone itself was very hard and had the appearance of being deposited slowly over time. It fragmented into tiny pieces. PROCEDURE: The patient was identified and brought to the operating room where general anesthesia was induced supine. Then he was placed in a modified lithotomy position with the left leg low and the right leg high. The genital region was prepared and draped sterilely. We began by performing cystoscopy was performed with a 21 Azerbaijani scope saline as an irrigant. Findings are reported above. The left ureteral orifice was intubated with a cone tip catheter and retrograde study obtained with fluoroscopic guidance. Next, a floppy tip wire was introduced up the left ureter which directed itself into the upper pole system. The cystoscope was then withdrawn and we passed first the stylet alone of an introducer sheath over the wire for dilation purposes, and then the introducer sheath itself. This was secured at the level of the skin with #2-0 silk. Next, a flexible ureteroscope was introduced with saline as an irrigant. We readily identified the calculus and used first a 350 micron fiber but switched to a 272 micron fiber when the first one was having difficulty negotiating the tip of the scope. Holmium laser energy was used at 10 Hertz and 0.8 joules and spent a relatively prolonged amount of time fragmenting this stone as it tended to fracture into tiny pieces and bits of sand. Once this was complete, we used an open ended basket to retrieve any large fragments. With only tiny fragments remaining, we removed the ureteroscope and the introducer sheath and back threaded the wire through the cystoscope. Then we passed a 24 cm 6 Azerbaijani Polaris type stent and removed the wire. After fluoroscopic confirmation of the position of the stent, we placed a Weinstein catheter to gravity drainage for temporary observation of hematuria. Estimated blood loss was less than 20 mL. No early complications. Patient tolerated the procedure well and was taken in stable condition to the post anesthesia room. cc: Bonifacio Medina M.D. [facility] Nimesh Rodriguez M.D.
[2016-12-16] MEDS: HYDROCODONE/ACETAMINOPHEN 5/325MG TABLET PO PRN ×3 (16:18→23:43)
[2016-12-16] MEDS: INSULIN ASPART (DOSE) 100 UNITS/1 ML SUB-Q PRN ×2 (16:59→21:14)
[2016-12-16] MEDS: LEVOFLOXACIN 750 MG/D5W 150 ML 750 MG in Premix (D5W) 150 ml Bag 1 EACH IV SCH (19:45)
[2016-12-16] MEDS: ENOXAPARIN SODIUM 40 MG/0.4 ML SYRINGE SUB-Q SCH (19:45)
[2016-12-16] MEDS: HYDROMORPHONE HCL 1 MG/ML SYRINGE IV PRN (20:01)
[2016-12-16] MEDS: INSULIN GLARGINE (DOSE) 100 UNITS/ML UNIT SUB-Q SCH (21:13)
[2016-12-16] MEDS: GABAPENTIN 300 MG CAPSULE PO SCH (21:13)
[2016-12-17] MEDS: HYDROMORPHONE HCL 1 MG/ML SYRINGE IV PRN (04:00)
[2016-12-17 05:51] LABS: ABSOLUTE NEUTROPHIL COUNT 12.2 K/mm3 (1.8-7.7); BASO # 0.1 K/mm3 (0.0-0.2); BASO % 0.3 % (0.2-1.0); EOS % 0.2 % (0.9-2.9); HEMATOCRIT 35.3 % (32.0-52.0); HEMOGLOBIN 11.8 gm/l (14.0-18.0); IMM NEUT # 0.1 K/mm3 (0-0.2); IMM NEUT% 0.5 % (0-1); LYMPH # 1.4 (1.0-4.8); LYMPH % 9.4 % (15-45); MEAN CELL VOLUME 84.9 fl (80.0-94.0); MEAN CORPUSCULAR HEMOGLOBIN 28.4 pg (27.0-31.0); MEAN CORPUSCULAR HGB CONC 33.4 g/dl (33.0-37.0); MEAN PLATELET VOLUME 10.7 fl (7.4-10.4); MONO # 1.5 (0.0-0.8); MONO % 9.5 % (4-12); NEUT % 80.1 % (43-75); PLATELET COUNT 255 K/mm3 (130-400); RED CELL DISTRIBUTION WIDTH 13.9 % (11.5-14.5)
[2016-12-17 06:16] LABS: CALCIUM 8.4 mg/dL (8.6-10.3)
[2016-12-17] MEDS: INSULIN ASPART (DOSE) 100 UNITS/1 ML SUB-Q PRN ×4 (07:14→21:12)
[2016-12-17] MEDS: HYDROCODONE/ACETAMINOPHEN 5/325MG TABLET PO PRN (07:19)
[2016-12-17] MEDS: LOSARTAN POTASSIUM 50 MG TABLET PO SCH (08:37)
[2016-12-17] MEDS: FINASTERIDE 5 MG TABLET PO SCH (08:38)
[2016-12-17] MEDS: DOCUSATE SODIUM 100 MG CAPSULE PO SCH ×2 (08:38→20:22)
[2016-12-17] MEDS: ATENOLOL 50 MG TABLET PO SCH (08:38)
[2016-12-17] MEDS: TAMSULOSIN HCL 0.4 MG CAPSULE.DR PO SCH (08:38)
[2016-12-17] MEDS: OXYBUTYNIN CHLORIDE 5 MG TAB.XL PO SCH (08:38)
--- NOTE | 2016-12-17 11:30 | PDOC43 ---
- Subjective Chief Complaint: Cellulitis of right knee and left toe Main c/o is back pain today. Does not feel that he is at full strength and indicates willingness to go to rehab at [facility], but does not appear to qualify. Is definite about returning home to his trailer without heating in any case. - Objective Vital Signs Temperature 98.6 F 12/17/16 07:57 Pulse Rate 87 12/17/16 07:57 Respiratory Rate 16 12/17/16 07:57 Blood Pressure 157/103 12/17/16 07:57 O2 Saturation by Pulse Oximetry 96 12/17/16 07:57 Oxygen Delivery Method Room Air Oxygen Flow Rate 0 Intake and Output 12/16/16 12/17/16 12/18/16 06:59 06:59 06:59 Intake Total 2410 2750 Output Total 2350 1305 200 Balance 60 1445 -200 General: Alert, Cooperative, No Acute Distress HEENT: Mucous membr. moist/pink Lungs: Clear to Auscultation Bilaterally Cardiovascular: Regular Rate and Rhythm Abdomen: Soft, Normal Bowel Sounds, No Tenderness, No Masses Extremities: Pulses Diminished but Palpable, Other (contractures of both ankles. Chronic wounds on both knees and second toes without current signs of infection.), No Edema Skin: Normal Color Neurological: Normal Speech Psych/Mental Status: Normal Mood Laboratory 12/17/16 05:30 12/17/16 05:30 12/17/16 12/17/16 12/16/16 07:07 05:30 21:03 RBC 4.16 L POC Capillary Glucose 351 H 334 H Calcium 8.4 L 12/16/16 12/16/16 12/16/16 16:54 15:54 12:20 RBC POC Capillary Glucose 157 H 152 H 107 H Calcium Current Medications: Current meds reviewed in EMR. - Problems: Assessment/Plan (1) Cellulitis of knee, right Status: AcuteAssessment/Plan: without lymphangitis, present on admit and also with infection of left second toe. with full thickness skin ulceration suspected bacterial, blood cx negative. Factors include neuropathy, diabetes, ambulation on knees, and living rough situation. Infection appears resolved but WBC up today therefore continue current tx. (2) Oqfsobl-Hvidf-Muvjh disease Status: ChronicAssessment/Plan: Ongoing, chronic, contributing to ambulatory difficulty (3) Diabetes mellitus type II, uncontrolled Qualifiers: Diabetes mellitus complication status: with neurologic complications Diabetes mellitus complication detail: with polyneuropathy Diabetes mellitus longterm insulin use: with longterm use Qualifier Code: (E11.42) Type 2 diabetes mellitus with diabetic polyneuropathy Status: Chronic Assessment/Plan: resulting in recurrent hyperglycemia. Currently on Lantus and SSI. Add back oral agents. Laboratory Tests 10/06/15 10/06/15 10/06/15 05:30 08:36 12:54 Glucose POC Capillary Glucose 206 H 202 H Calcium 8.2 L 12/15/16 12/15/16 12/15/16 07:19 11:49 16:58 Glucose POC Capillary Glucose 137 H 236 H 288 H Calcium 12/15/16 12/16/16 12/16/16 22:11 05:15 08:06 Glucose 163 H POC Capillary Glucose 191 H 100 Calcium (4) Hypertension Qualifiers: Hypertension type: essential hypertension Qualifier Code: (I10) Essential (primary) hypertension Status: ChronicAssessment/Plan: High this a.m. but in general adequate control, will follow. (5) GERD (gastroesophageal reflux disease) Qualifiers: Esophagitis presence: without esophagitis Qualifier Code: (K21.9) Gastro-esophageal reflux disease without esophagitis Status: Chronic Assessment/Plan: Continue PPI (6) Neuropathy Status: ChronicAssessment/Plan: due to diabetes, continue gabapentin (7) BPH (benign prostatic hyperplasia) Qualifiers: Prostatic enlargement morphology: unspecified morphology Lower urinary tract symptom presence: symptoms present Qualifier Code: (N40.1) Benign prostatic hyperplasia with lower urinary tract symptoms Status: Chronic Assessment/Plan: Home medications (8) Renal calculus, left Status: ChronicAssessment/Plan: S/P lithotrypsy and left ureteral stent placement 12/16. WBC up today assumed due to procedure. Microscopic hematuria noted on UA due to stone and procedure. (9) Dementia Qualifiers: Dementia type: unspecified type Status: SuspectedAssessment/Plan: SLUMS eval , suspect some degree of dementia complicating compliance and home situation/placement (10) Hyponatremia Status: AcuteAssessment/Plan: Due to IV hydration and urinary irrigation with procedure 12/16, recheck in a.m. (11) Anemia Status: AcuteAssessment/Plan: from IV fluid dilution (12) Leukocytosis Qualifiers: Leukocytosis type: leukemoid reaction Qualifier Code: (D72.823) Leukemoid reaction Status: AcuteAssessment/Plan: likely due to the stress of yesterday's procedure, recheck in a.m. VTE Prophylaxis: ICP Disposition: Discharge in 1-2 days, likely to home, but does indicate he would accept [facility] for short term rehab only.
[2016-12-17] MEDS ORDERED: TRAMADOL HCL 50 MG TABLET PO PRN (11:32)
[2016-12-17] MEDS ORDERED: IBUPROFEN 600 MG TABLET PO PRN (11:32)
[2016-12-17] MEDS: GLIPIZIDE 5 MG PO SCH (12:52)
[2016-12-17] MEDS: METFORMIN HCL 500 MG TABLET PO SCH (16:00)
[2016-12-17] MEDS ORDERED: METFORMIN HCL 500 MG PO SCH (16:00)
[2016-12-17] MEDS: ENOXAPARIN SODIUM 40 MG/0.4 ML SYRINGE SUB-Q SCH (20:22)
[2016-12-17] MEDS: GABAPENTIN 300 MG CAPSULE PO SCH (20:22)
[2016-12-17] MEDS: LEVOFLOXACIN 750 MG/D5W 150 ML 750 MG in Premix (D5W) 150 ml Bag 1 EACH IV SCH (20:27)
[2016-12-17] MEDS ORDERED: PUMP TUBING ONE (20:30)
[2016-12-17] MEDS: INSULIN GLARGINE (DOSE) 100 UNITS/ML UNIT SUB-Q SCH (21:11)
[2016-12-17] MEDS: VANCOMYCIN HCL 2 G in SODIUM CHLORIDE 0.9% 500 ML IV SCH (22:10)
[2016-12-17] MEDS: MENTHOL/CETYLPYRD 1 EACH LOZENGE PO PRN (23:10)
[2016-12-18] MEDS: DIPHENHYDRAMINE HCL 25 MG CAPSULE PO PRN (00:15)
[2016-12-18] MEDS: ALPRAZOLAM 0.25 MG TABLET PO PRN (00:15)
[2016-12-18 06:07] LABS: ABSOLUTE NEUTROPHIL COUNT 7.2 K/mm3 (1.8-7.7); BASO # 0.1 K/mm3 (0.0-0.2); BASO % 0.7 % (0.2-1.0); EOS # 0.6 (0.0-0.5); EOS % 4.8 % (0.9-2.9); HEMATOCRIT 34.5 % (32.0-52.0); HEMOGLOBIN 11.2 gm/l (14.0-18.0); IMM NEUT% 0.3 % (0-1); LYMPH % 24.6 % (15-45); MEAN CELL VOLUME 87.3 fl (80.0-94.0); MEAN CORPUSCULAR HEMOGLOBIN 28.4 pg (27.0-31.0); MEAN CORPUSCULAR HGB CONC 32.5 g/dl (33.0-37.0); MEAN PLATELET VOLUME 10.7 fl (7.4-10.4); MONO # 1.4 (0.0-0.8); MONO % 11.6 % (4-12); PLATELET COUNT 240 K/mm3 (130-400); RED CELL DISTRIBUTION WIDTH 14.2 % (11.5-14.5)
[2016-12-18] MEDS: MENTHOL/CETYLPYRD 1 EACH LOZENGE PO PRN (06:15)
[2016-12-18] MEDS ORDERED: LEVOFLOXACIN 750 MG TABLET PO SCH (09:00)
[2016-12-18] MEDS: DOCUSATE SODIUM 100 MG CAPSULE PO SCH (09:13)
[2016-12-18] MEDS: LOSARTAN POTASSIUM 50 MG TABLET PO SCH (09:13)
[2016-12-18] MEDS: METFORMIN HCL 500 MG TABLET PO SCH (09:13)
[2016-12-18] MEDS: GLIPIZIDE 5 MG PO SCH (09:13)
[2016-12-18] MEDS: FINASTERIDE 5 MG TABLET PO SCH (09:13)
[2016-12-18] MEDS: TAMSULOSIN HCL 0.4 MG CAPSULE.DR PO SCH (09:13)
[2016-12-18] MEDS: ATENOLOL 50 MG TABLET PO SCH (09:13)
[2016-12-18] MEDS: OXYBUTYNIN CHLORIDE 5 MG TAB.XL PO SCH (09:14)
--- NOTE | 2016-12-18 09:36 | PDOC43 ---
- Subjective Chief Complaint: Cellulitis of right knee and left toe Still feels weak, like his arm are heavy, this a.m. Hopes he will be strong enough to go home later today. - Objective Vital Signs Temperature 99.0 F 12/18/16 07:00 Pulse Rate 78 12/18/16 07:00 Respiratory Rate 17 12/18/16 07:00 Blood Pressure 116/72 12/18/16 07:00 O2 Saturation by Pulse Oximetry 96 12/18/16 07:00 Oxygen Delivery Method Room Air Oxygen Flow Rate 0 Intake and Output 12/17/16 12/18/16 12/19/16 06:59 06:59 06:59 Intake Total 2750 1150 Output Total 1305 1400 Balance 1445 -250 General: Alert, Oriented x3, Cooperative, No Acute Distress HEENT: Mucous membr. moist/pink Lungs: Clear to Auscultation Bilaterally Cardiovascular: Regular Rate and Rhythm Abdomen: Soft, Normal Bowel Sounds, No Tenderness, No Masses Extremities: Pulses Diminished but Palpable, No Edema Skin: Normal Color Wound: Dressing Clean/Dry/Intact (knees and 2nd toes bilateral examined, no erythema or exudate, just chronic dry crusted ulcerations.) Neurological: Normal Speech Psych/Mental Status: Normal Mood Laboratory 12/18/16 05:30 12/18/16 12/18/16 12/17/16 07:53 05:30 21:30 RBC 3.95 L MCHC 32.5 L POC Capillary Glucose 59 L Vancomycin Trough 12.6 H 12/17/16 12/17/16 12/17/16 21:05 16:02 12:22 RBC MCHC POC Capillary Glucose 237 H 304 H 218 H Vancomycin Trough Current Medications: Current meds reviewed in EMR. - Problems: Assessment/Plan (1) Cellulitis of knee, right Status: AcuteAssessment/Plan: without lymphangitis, present on admit and also with infection of left second toe. with full thickness skin ulceration suspected bacterial, blood cx negative. Factors include neuropathy, diabetes, ambulation on knees, and living rough situation. Infection appears resolved, change to PO abx. (2) Urciaji-Abxyf-Cnxnl disease Status: ChronicAssessment/Plan: Ongoing, chronic, contributing to ambulatory difficulty (3) Diabetes mellitus type II, uncontrolled Qualifiers: Diabetes mellitus complication status: with neurologic complications Diabetes mellitus complication detail: with polyneuropathy Diabetes mellitus intermission coordinator insulin use: with intermission coordinator use Qualifier Code: (E11.42) Type 2 diabetes mellitus with diabetic polyneuropathy Status: Chronic Assessment/Plan: resulting in recurrent hyperglycemia. Currently on Lantus and SSI. oral agents restarted 12/17. Transient hypoglycemia this a.m resolved. Laboratory Tests 10/06/15 10/06/15 10/06/15 05:30 08:36 12:54 Glucose POC Capillary Glucose 206 H 202 H Calcium 8.2 L 12/15/16 12/15/16 12/15/16 07:19 11:49 16:58 Glucose POC Capillary Glucose 137 H 236 H 288 H Calcium 12/15/16 12/16/16 12/16/16 22:11 05:15 08:06 Glucose 163 H POC Capillary Glucose 191 H 100 Calcium (4) Hypertension Qualifiers: Hypertension type: essential hypertension Qualifier Code: (I10) Essential (primary) hypertension Status: ChronicAssessment/Plan: adequate control, will follow. (5) GERD (gastroesophageal reflux disease) Qualifiers: Esophagitis presence: without esophagitis Qualifier Code: (K21.9) Gastro-esophageal reflux disease without esophagitis Status: Chronic Assessment/Plan: Continue PPI (6) Neuropathy Status: ChronicAssessment/Plan: due to diabetes, continue gabapentin (7) BPH (benign prostatic hyperplasia) Qualifiers: Prostatic enlargement morphology: unspecified morphology Lower urinary tract symptom presence: symptoms present Qualifier Code: (N40.1) Benign prostatic hyperplasia with lower urinary tract symptoms Status: Chronic Assessment/Plan: Home medications (8) Renal calculus, left Status: ChronicAssessment/Plan: S/P lithotrypsy and left ureteral stent placement 12/16. WBC up today assumed due to procedure. Microscopic hematuria noted on UA due to stone and procedure. (9) Dementia Qualifiers: Dementia type: unspecified type Status: SuspectedAssessment/Plan: SLUMS eval , suspect some degree of dementia complicating compliance and home situation/placement (10) Hyponatremia Status: AcuteAssessment/Plan: Due to IV hydration and urinary irrigation with procedure 12/16, recheck lab pending (11) Anemia Status: AcuteAssessment/Plan: from IV fluid dilution (12) Leukocytosis Qualifiers: Leukocytosis type: leukemoid reaction Qualifier Code: (D72.823) Leukemoid reaction Status: AcuteAssessment/Plan: likely due to the stress of yesterday's procedure, improving VTE Prophylaxis: ICP Disposition: Discharge home likely later today
[2016-12-18] MEDS: INSULIN ASPART (DOSE) 100 UNITS/1 ML SUB-Q PRN (12:35)
[2016-12-18 12:54] VITALS: BP 160/95
[2016-12-18 13:12] LABS: CALCIUM 8.3 mg/dL (8.6-10.3)
--- NOTE | 2016-12-18 13:43 | DS ---
Sylvain Carlson [id number] : 1945 DATE OF ADMISSION: 12/13/2016 DATE OF DISCHARGE: 12/18/2016 ADMIT DIAGNOSES: 1. Cellulitis. 2. Diabetes mellitus type 2, uncontrolled. 3. Debility. DISCHARGE DIAGNOSES: 1. Cellulitis of the right knee and left second toe secondary to longstanding ulcerations present on admission presumed bacterial, no lymphangitis and resolved. 2. Diabetes mellitus type 2 uncontrolled with recurrent hyperglycemia due to noncompliance with medications and transient hypoglycemia while in the hospital, resolved. 3. 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 4. Hypertension. 5. Gastroesophageal reflux disease. 6. Benign prostatic hypertrophy. 7. Nephrolithiasis status post lithotripsy and left ureteral stent placement. 8. Peripheral neuropathy. 9. Hyponatremia. 10. Anemia due to IV fluid hydration. 11. Dementia not otherwise classified with SLUMS score of 22 out of 30. CONSULTATIONS: 1. Dr. Bonifacio Medina. 2. Physical and occupational therapy. PROCEDURES: Cystoscopy with left retrograde ureterography, left ureteroscopy with laser lithotripsy and placement of ureteral stent by Dr. Medina on December 16. HISTORY OF ADMISSION: Mr. Carlson is a 71-year-old with longstanding Charcot Roro Tooth disease rendering him essentially non-ambulatory. He lives in a decrepit mobile home without room for a wheelchair and essentially drags himself around the apartment causing chronic ulcerations on his knees and second toes. He presented to [facility] on Friday in anticipation of his scheduled urologic procedure on Friday. He had not been compliant with his medications and he had acute erythema of the right knee and left second toe around the chronic ulcerations. HOSPITAL COURSE: The patient was admitted to med/surg. He was treated with vancomycin and Levofloxacin. He was given Lantus insulin and correction dose Aspart insulin and his other outpatient medications were resumed. The erythema of his knee and toe resolved. He underwent the urologic procedure as above. Following the procedure he complained of generalized weakness, however, he was repeatedly evaluated by therapies and found to be at his baseline. He again refused referral to prison nursing care or assisted living and insists on returning to his independent, but inadequate living situation. On December 18 he is at his baseline and will be discharged to his home. DISCHARGE PLAN: Discharge to home. FOLLOWUP: With Dr. Rodriguez December 26 at 3:00 p.m. He is also to have follow up with Dr. Medina in approximately one week for removal of the left ureteral stent. DIET: Diabetic. ACTIVITY: He is encouraged to use a wheelchair for mobility which is not a possibility in his home. He is encouraged not to drag himself or crawl around exacerbating the chronic ulcerations and likely causing recurrent infection. He is encouraged not to use his method of ambulating with two canes as he is unstable and will likely fall and suffer further injury. DISCHARGE MEDICATIONS: 1. Tramadol 50 mg by mouth four times daily as needed. 2. Acetaminophen 650 mg by mouth every 6 hours as needed. 3. MiraLax 17 gm by mouth daily as needed. 4. Levofloxacin 750 mg by mouth daily, he should continue on that until he has his ureteral stent removed. 5. Ibuprofen 600 mg by mouth four times daily. 6. Tamsulosin 0.4 mg by mouth daily. 7. Losartan 100 mg by mouth daily. 8. Oxybutynin 5 mg by mouth twice daily. 9. Atenolol 50 mg by mouth daily. 10. Glyburide 10 mg by mouth daily. 11. Gabapentin 600 mg by mouth nightly. 12. Metformin 500 mg by mouth daily. 13. Lantus insulin 30 units subcutaneously daily. JOB: [id number] CC: Dr. Jennifer Medina
[2016-12-19 15:28] LABS: CALCULUS NUMBER 1 (()); CALCULUS TOTAL WEIGHT 20 mg (())
== END 2016-12-18 14:45 | disposition home or self-care (01) ==
LOC: ED 14:53 → MS 17:19
PROVIDERS: ADMIT Internal Medicine Hematology & Oncology; ATTEND Internal Medicine Hematology & Oncology
PROC: 0TF78ZZ Fragmentation in Left Ureter, Via Natural or Artificial Opening Endoscopic (ICD-10-PCS; principal; 2016-12-16)
PROC: 0T778DZ Dilation of Left Ureter with Intraluminal Device, Via Natural or Artificial Opening Endoscopic (ICD-10-PCS; 2016-12-16)
DX: N30.00 Acute cystitis without hematuria (principal); E11.628 Type 2 diabetes mellitus with other skin complications; L03.032 Cellulitis of left toe; L03.115 Cellulitis of right lower limb; E11.621 Type 2 diabetes mellitus with foot ulcer; L97.519 Non-pressure chronic ulcer of other part of right foot with unspecified severity; B96.5 Pseudomonas (aeruginosa) (mallei) (pseudomallei) as the cause of diseases classified elsewhere; E11.42 Type 2 diabetes mellitus with diabetic polyneuropathy; Z79.4 Long term (current) use of insulin; Z79.84 Long term (current) use of oral hypoglycemic drugs; L98.499 Non-pressure chronic ulcer of skin of other sites with unspecified severity; I10 Essential (primary) hypertension; K21.9 Gastro-esophageal reflux disease without esophagitis; N40.0 Benign prostatic hyperplasia without lower urinary tract symptoms; N20.0 Calculus of kidney; G60.0 Hereditary motor and sensory neuropathy; F03.90 Unspecified dementia, unspecified severity, without behavioral disturbance, psychotic disturbance, mood disturbance, and anxiety; E87.1 Hypo-osmolality and hyponatremia; D64.9 Anemia, unspecified; D72.829 Elevated white blood cell count, unspecified
CPT/HCPCS: 85025 ×6; 87040; 82365; 80048 ×6; 83036; 81001; 80202; 36415 ×5; 73660; 97530; 97162; 97535 ×2; 97166; 52356; A9270 ×56; J1170 ×2; J3010; J1580; J1100; J1650 ×5; J3370 ×5; J2405; J7120 ×2; J7040 ×5; J7050 ×4; J1956 ×5; J1815 ×16; Q9967; J2001; G8978; G8979